=== PATIENT | female | born 2005 | race Caucasian/White ===

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

== ENCOUNTER 2025-01-15 09:45 | Outpatient (CLI) | payer OTHER, SELFPAY ==
[2025-01-15 11:29] LABS: HCG,Quantitative > 15000 mIU/ml (0-5.42)
[2025-01-16 12:12] LABS: Progesterone 11.2 ng/mL (.)
== END 2025-01-15 23:59 | disposition home or self-care (01) ==
LOC: LAB 09:46
PROVIDERS: Visit Provider Obstetrics & Gynecology
DX: Z32.01 Encounter for pregnancy test, result positive (principal)
CPT/HCPCS: 36415; 84144; 84702

== ENCOUNTER 2025-02-07 14:30 | Outpatient (CLI) | payer OTHER, SELFPAY ==
[2025-02-07 15:20] LABS: Basophils % 0.2 % (0.1-2.0); Eosinophils % 0.5 % (0.1-12.0); Hematocrit 32.2 % (37.0-47.0); Hemoglobin 10.9 g/dL (12.2-16.2); Lymphocytes # 1.6 K/mm3 (0.7-4.5); Lymphocytes % 19.2 % (10-50); Mean Corpuscular HGB Conc 33.9 g/dL (31.8-35.4); Mean Corpuscular Hemoglobin 26.9 pg (27.0-31.2); Mean Corpuscular Volume 79.5 fl (81-99); Mean Platelet Volume 11.5 fl (7.4-10.4); Monocytes # 0.5 K/mm3 (0.1-1.0); Monocytes % 5.8 % (1.7-9.3); Neutrophils # 6.3 K/mm3 (1.8-7.8); Neutrophils % 74.1 % (37.0-80.0); Platelet Count 261 K/mm3 (142-424); Red Blood Count 4.05 M/mm3 (4.20-5.40); Red Cell Distribution Width 14.3 % (11.5-17.5); White Blood Count 8.5 K/mm3 (4.5-13.0)
[2025-02-07 16:05] LABS: RPR W/RFX Titers Nonreactive (Nonreactive)
[2025-02-07 16:23] LABS: HIV Combo NEGATIVE (Negative)
[2025-02-07 16:32] LABS: Hepatitis C Ab Qual. W/ RFX NEGATIVE (Negative)
[2025-02-08 07:30] LABS: Hepatitis B Surface Antigen Negative (Negative)
[2025-02-08 08:45] LABS: Rubella Antibodies, IgG 1.34 index (Immune >0.99)
[2025-02-10 21:22] LABS: Neisseria gonorrhoeae, NAA Negative (Negative)
== END 2025-02-07 23:59 | disposition home or self-care (01) ==
LOC: LAB 15:53
PROVIDERS: Visit Provider Obstetrics & Gynecology
DX: Z34.81 Encounter for supervision of other normal pregnancy, first trimester (principal)
CPT/HCPCS: 36415; 85025; 86592; 86762; 86803; 86850; 87340; 87389; 87491; 87591

== ENCOUNTER 2025-04-28 12:40 | Outpatient (CLI) | payer OTHER, SELFPAY ==
--- OUTSIDE RECORDS SUMMARY | 2025-04-28 12:43 | XMS_ITS | Continuity of Care Document ---
Author Organization [facility] Address [address] [place] [address] Care Team Providers Care Enterprise Analyst Name Role Phone KAY CARRANZA Primary Care Provider Assessment No assessment recorded. Plan of Treatment Reminders Order Date Submit Date Provider Last Modified By Organization Details Last Modified Time Details Appointments None recorded. Lab CBC w/ auto diff 2024 025 [facility], [address], [place], [address], 5 11:23:49 CMP, serum or plasma 2024 025 [facility], [address], [place], [address], 5 11:23:50 TSH + free T4, serum 2024 025 [facility], [address], [place], [address], 5 11:23:48 HbA1c (hemoglobin A1c), blood 2024 025 [facility], [address], [place], [address], 5 11:23:52 magnesium, serum or plasma 2024 025 [facility], [address], [place], [address], 5 11:23:54 cobalamin and folate panel, serum 2024 025 [facility], [address], [address], [place], [address], 5 11:23:51 vitamin D, 25-hydroxy, total, serum 2024 025 [facility], [address], [address], [place], [address], 5 11:23:53 iron + TIBC + ferritin, serum 2024 025 [facility], [address], [address], [place], [address], 5 11:23:47 Referral obstetricia n and gynecologis t referral - Dr. Wallace in [facility] 2024 025 [email or web address] Mary Kay Wallace DO, [address], [place], [address], 08:43:16 cardiologis t referral - Dr. Parham see if they can see her this week [facility]24 [facility], [address], [place], [address], 08:43:16 Procedures None recorded. Surgeries None recorded. Imaging None recorded. Medication Orders None recorded. Patient TargetsNo targets recorded. Patient Instructions Encounter Date Encounter Id Patient Instructions Last Modified By Organization Details Last Modified Time 03/03/2025 [id number] Plan: 1. labs drawn today for evaluation. 2. Referral to Cardiology started today. 3. Referral to Ob started today for evaluation of patient. 4. Patient is going to follow-up with us as needed. Patient was counseled to return to the clinic sooner if needed. 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 Parham see if they can see her this week Referring Physician: Marianna Hernandez [facility], Encounter Date: 03/03/2025 Application Support Intern And Gynecologis t Referral for Gestation period, [address] Wallace in [facility] Referring Physician: [facility], Encounter Date: 03/03/2025 Problems Name Problem SNOMED Code Status Onset Date Resolution Date Notes Provider Name and Address Organization Details Recorded Time Migraine 87385818 Active 2024 Marianna Hernandez PA-C [employer],[address], [place], [address], [place] - [facility] - [place] & [place] 5 15:14:39 Frequent headache 013732443 Active 2024 Marianna Hernandez PA-C [facility], [address], [place] [facility] [place] & [place] 5 15:15:53 Gastroesophage al reflux disease without esophagitis 282825447 Active 2024 Marianna Hernandez PA-C [facility],[address], [place], [address], [place] [facility] [place] 5 10:58:34 Gestation period, 12 weeks 08414232 Active 2024 Marianna Hernandez PA-C [facility],[address], [place], [address], [place] [facility] [place] 5 14:54:25 Near syncope 912085468 Active 2024 Marianna Hernandez PA-C [facility],[address], [place], [address], [place] [facility] [place] & [place] 5 13:21:31 Mixed anxiety and depressive disorder 831233837 Active Yeimi martinez, [place] [facility] - [place] & [place] 2 12:57:11 Irregular periods 84753113 Active Yeimi Felix null, [place] - [place] & [place] 2 12:57:11 Mood disorder 56648770 Active Yeimi Felix null, [place] - [facility] & [place] 2 12:57:11 Attention deficit hyperactivity disorder 382636052 Active Yeimi Felix null, [place] - [place] & [place] 2 12:57:11 Attention deficit hyperactivity disorder, combined type 20316960 Active Yeimi Felix null, [place] - [facility] & [place] 2 12:57:11 Allergic rhinitis 47545352 Active Yeimi Felix null, [place] - [place] & [place] 2 12:57:11 Scoliosis deformity of spine 850413484 Active Yeimi Felix null, [place] - [place] & [place] 2 12:57:11 Dyssomnia 95650599 Active Yeimi Felix null, [place] & [place] 2 12:57:11 Depression - motion Active Yeimi Felix null, [place] [facility] & [place] 2 12:57:11 Notes:Problem Name: Depressi on Problem Code: 018923891 Problem Code Type: SNOMED Status: Active Start_Date: 06/29/2021 - Problem Notes None recorded. Procedures Surgical History Date Name Laterality Status Provider Name and Address Organization Details Recorded Time 11/13/2012 Tonsillect flo/Adenoi dectomy completed Shi FRAIRE [facility] & [place] 11/19/2024 15:05:39 Imaging Results None recorded. Procedure Notes None recorded. Medical Equipment None Reported. Allergies No known drug allergies Medications Name Sig Start Date Stop Date Status Note LastModified by Organization Details LastModified Time clonidine HCl 0.1 mg tablet 1.5 {tablets} s by oral route. 11/18 completed Not Available Not Available Not Available labetalol 200 mg tablet 11/18 completed Not Available Not Available Not Available sumatriptan 25 mg tablet 1 tablet x 1 when headache presents. wait 2 hours and repeat x 1 03/03 completed Not Available Not Available Not Available clonidine HCl 0.3 mg tablet 11/18 completed Not Available Not Available Not Available sertraline 100 mg tablet TAKE 1 TABLET ONCE DAILY. 11/18 completed Not Available Not Available Not Available oxcarbazepi ne 300 mg tablet 1 {tablet} twice a day by oral route. 11/18 completed Not Available Not Available Not Available famotidine 20 mg tablet Take 1 tablet twice a day by oral route for 90 days. active Not Available Not Available No t Available fluoxetine 10 mg capsule 11/18 completed Not Available Not Available Not Available labetalol 100 mg tablet 11/18 completed Not Available Not Available Not Available sertraline 50 mg tablet TAKE ONE TABLET BY MOUTH ONCE A DAY 11/18 completed Not Available Not Available Not Available Concerta 27 mg tablet,exte nded release TAKE 1 TABLET BY MOUTH EVERY DAY IN THE MORNING 11/18 completed Not Available Not Available Not Available nitrofurant oin monohydrate /macrocryst als 100 mg capsule 11/18 completed Not Available Not Available Not Available Zafemy 150 mcg-35 mcg/24 hr transdermal patch 11/18 completed Not Available Not Available Not Available [facility] COVID-19 Antigen Rapid Home Test kit USE DIRECTED 11/18 completed Not Available Not Available Not Available Vitals Date Recorded Body height Body mass index (BMI) [Percentile] Per age and sex Body mass index (BMI) Body weight Body temperature Oxygen saturation Oxygen saturation in Arterial blood by Pulse oximetry Heart rate Systolic blood pressure Diastolic blood pressure Provider Name and Address Organization Details Last Updated DateTime 5 162.56 cm 94 % 30.9 kg/m2 61570.6 3 g 97.9 [degF] 99 % 99 % 73 /min 120 mm[Hg] 70 mm[Hg] Shi Collado [place] [facility] & [place] 14:28:01 Social History Question Answer Notes LastModified by Organizat ion Details LastModified Time Tobacco Smoking Status Current Some Day Smoker Shi Collado michelle, [place] [facility] & [place] 11/19/2024 15:05:36 Do You Have An Advance Directive? No Information not available 11/19/2024 Are You Blind Or Do You Have Difficulty Seeing? No [email or web address] Information not available 11/19/2024 What Was The Date Of Your Most Recent Tobacco Screening? 11/18/2024 [email or web address] Information not available 11/19/2024 Are You Passively Exposed To Smoke? No [email or web address] Information not available 11/19/2024 How Much Tobacco Do You Smoke? 0.25 PPD [email or web address] Information not available 11/19/2024 How Many Years Have You Smoked Tobacco? 3 [email or web address] Information not available 11/19/2024 Sex: Female Functional Status Question Answer Note LastModified by Organizat ion Details LastModified Time Do you use any illicit or recreational drugs? No [email or web address] Information not available 11/19/2024 What is your level of alcohol consumption? None [email or web address] Information not available 11/19/2024 Do you or have you ever used smokeless tobacco? Never used smokeless tobacco [email or web address] Information not available 11/19/2024 What is your exercise level? Occasional [email or web address] Information not available 11/19/2024 Mental Status Question Answer Note LastModified by Organization D etails LastModified Time Do you feel stressed (tense, restless, nervous, or anxious, or unable to sleep at night)? [id number] [email or web address] Information not available 11/19/2024 Family History Relationship Description Onset Age of this Age Resolved Age Notes LastModified by Organization Details LastModified Time Father Heart disease [email or web address] Not available 2024 15:06:08 Medical History No medical history recorded. Gynecological History Statement/Question Response Menses Monthly Y Sexually Active? Y Obstetrics History GPAL:G 0 P 0 0 0 0 Immunizations Vaccine Type Date Status Note Provider Nam e and Address Organization Details Recorded Time IPV 6 completed Yeimi martinez, [place] [facility] [place] & [place] 07/24/2022 12:57:12 DTaP, 5 pertussis antigens 6 completed Yeimi martinez, [place] [facility] [place] 07/24/2022 12:57:12 DTaP, 5 pertussis antigens 5 completed Yeimi martinez [place] [facility] - [facility] & [place] 07/24/2022 12:57:12 HPV, unspecified formulation 6 completed Yeimi Isidro null, [place] [facility] - [facility] & [place] 07/24/2022 12:57:12 Hep B, adolescent or pediatric 6 completed Yeimi Isidro null, [place] [facility] [place] & [place] 07/24/2022 12:57:12 Hib (PRP-T) 6 completed Yeimi Isidro null[place] [facility] [place] & [place] 07/24/2022 12:57:12 Influenza, split virus, quadrivalent, PF 2 completed Yeimi Felix null[place] [facility] [place] [facility] & [place] 07/24/2022 12:57:12 MMR 6 completed Yeimi Isidro null[place] [facility] [place] & [place] 07/24/2022 12:57:12 Hib (PRP-T) 6 completed Yeimi [place]id[place] [facility] [place] & [place] 07/24/2022 12:57:12 Hep A, ped/adol, 2 dose 6 completed Yeimi Felix [place] [facility] [place] [facility] & [place] 07/24/2022 12:57:12 Hep B, adolescent or pediatric 6 completed Yeimi Felix [place] [facility] [place] & [place] 07/24/2022 12:57:12 DTaP, 5 pertussis antigens 6 completed Yeimi Felix [place] [facility] [place] & [place] 07/24/2022 12:57:12 meningococcal B, OMV 1 completed Yeimi Felix [place] [facility] [place] [facility] & [place] 07/24/2022 12:57:12 IPV 6 completed Yeimi Isidro [place] [facility] [place] 07/24/2022 12:57:12 Hep B, adolescent or pediatric 5 completed Yeimi Felix [place] [facility] [place] & 07/24/2022 12:57:12 Hib (PRP-T) 6 completed Yeimi Molinaett null[place] [facility] [place] 07/24/2022 12:57:12 Hib (PRP-T) 5 completed Yeimi Molina[place] null[place] [facility] [place] & [place] 07/24/2022 12:57:12 IPV 6 completed Yeimi Mol[place] [facility] [place] 07/24/2022 12:57:12 Hep B, adolescent or pediatric 5 completed Yeimi [place]idro [place] [facility] 07/24/2022 12:57:12 Tdap 6 completed Yeimi Mol[place] null[place] [facility] [place] [facility] & 07/24/2022 12:57:12 meningococcal B, OMV 1 completed Yeimi [place] & 07/24/2022 12:57:12 varicella 6 completed Yeimi Molina[place] null[place] [facility] [place] & [place] 07/24/2022 12:57:12 DTaP, 5 pertussis antigens 6 completed Yeimi Molinaett [place] [facility] [place] & [place] 07/24/2022 12:57:12 DTaP, 5 pertussis antigens 6 completed Yeimi [place]id[place] [facility] & [place] 07/24/2022 12:57:12 pneumococcal conjugate PCV 7 6 completed Yeimi [place]id[place] [facility] & [place] 07/24/2022 12:57:12 DTaP, 5 pertussis antigens 9 completed Yeimi Molina[place] [facility] & [place] 07/24/2022 12:57:12 Hep A, unspecified formulation 7 completed Yeimi Isidro [place] [facility] & [place] 07/24/2022 12:57:12 IPV 5 completed Yeimi Felix null[place] [facility] [place] [facility] & [place] 07/24/2022 12:57:12 pneumococcal conjugate PCV 7 5 completed Yeimi Felix [place] [facility] & [place] 07/24/2022 12:57:12 Hep B, adolescent or pediatric 6 completed Yeimi Felix [place] [facility] & [place] 07/24/2022 12:57:12 meningococcal MCV4P 1 completed Yeimi [place] [facility] & [place] 07/24/2022 12:57:12 pneumococcal conjugate PCV 7 6 completed Yeimi Felix [place] [facility] & [place] 07/24/2022 12:57:12 varicella 8 completed Ye[place] [facility] & [place] 07/24/2022 12:57:12 MMR 9 completed Yeimi [place] [facility] & [place] 07/24/2022 12:57:12 IPV 9 completed Yeimi Felix [place] [facility] & [place] 07/24/2022 12:57:12 HPV, unspecified formulation 7 completed Ye[place] [facility] & [place] 07/24/2022 12:57:12 Hib (PRP-T) 9 completed Yeimi Felix [place] [facility] & [place] 07/24/2022 12:57:12 meningococcal MCV4, unspecified formulation 6 completed Yeimi [place] [facility] [facility] & [place] 07/24/2022 12:57:12 Past Encounters Encounter ID Performer Location Encounter Start Date Encounter Closed Date Diagnosis/Indication Diagnosis SNOMED-CT Code Diagnosis ICD10 Code Diagnosis Note [id number] Calvin Brown MD [facility] [address] [facility] [place] [address] 03/03/2025 13:59:36 03/03/2025 15:16:33 Gestation period, 12 weeks 69854487 Z3A.12 Near syncope 061192174 R 55 Health Concerns Section Related Observation LastModified by Organization Detai ls LastModified Time None Recorded Concern Status LastModified by Organization Details LastModified Time None Recorded Payers Encounter Date Sequence Insurance Name Policy Number Policy Grimm Covered Member ID Grimm Member ID Guarantor Name 03/03/2025 1 [employer] [facility] (MEDICAID HMO) Meredith Hewitt [id number] Meredith Villegas Notes Date Note Type Note Provider Name and Address Organization Details Recorded Time 03/03/2025 text/html Meredith is a 19 y o Female who presents to the clinic today for evaluation. Patient is currently 12 weeks . Over the 6 months patient has been having episodes of near syncopal episodes. Patient states that nothing has seemed to make this any better or worse it hurts at random times. She feels like she is going to pass out and that is all the symptoms she has. Patient denies any palpitations or chest pain. Patient has been to see her OB already and has an upcoming appointment here in a few weeks. Patient has no other issues or new complaints. Marianna Hernandez PA-C [address] [facility],[address], [place], [address], [facility] - [place] & [place] 03/04/2025 11:08:44 OBGyn Episode No OBEpisode recorded.
--- OUTSIDE RECORDS SUMMARY | 2025-04-28 12:43 | XMS_ITS | Data Portability ---
Author Organization [facility], [facility] [place] Address [address] [place] [address] Care Team Providers Care Speech Professor Name Role Phone CHASTITY CARRANZANN Primary Care Provider Assessment No assessment recorded. Plan of Treatment Reminders Order Date Submit Date Provider Last Modified By Organization Details Last Modified Time Details Appointments None recorded. Lab CBC w/ auto diff 2024 025 [facility], [address], [place], [address], 5 11:23:49 CMP, serum or plasma 2024 025 [facility], [address], [place], [address], 5 11:23:50 TSH + free T4, serum 2024 025 [facility], [address], [place], [address], 5 11:23:48 HbA1c (hemoglobin A1c), blood 2024 025 [facility], [address], [place], [address], 5 11:23:52 magnesium, serum or plasma 2024 025 [facility], [address], [place], [address], 5 11:23:54 cobalamin and folate panel, serum 2024 025 [facility], [address], [address], [place], [address], 5 11:23:51 vitamin D, 25-hydroxy, total, serum 2024 025 [facility], [address], [address], [place], [address], 5 11:23:53 iron + TIBC + ferritin, serum 2024 025 [facility], [address], [address], [place], [address], 5 11:23:47 CMP, serum or plasma 2024 025 [facility], [address], [address], [place], [address], 5 07:11:49 CBC w/ auto diff 2024 025 [facility], [address], [address], [place], [address], 5 07:11:48 iron + total iron-bindin g capacity (TIBC), serum 2024 025 [facility], [address], [address], [place], [address], 5 07:11:50 vitamin B12 + folate, serum or blood 2024 025 [facility], [address], [address], [place], [address], 5 07:11:46 TSH + free T4, serum 2024 025 [facility], [address], [address], [place], [address], 5 07:11:46 magnesium, serum or plasma 2024 025 [facility], [address], [address], [place], [address], 5 07:11:51 hCG, qualitative , serum 2024 025 [email or web address] [facility], [address], [address], [place], [address], 5 07:56:39 Referral obstetricia n and gynecologis t referral - Dr. Wallace in [facility] 2024 025 [place] [id number] Mary Kay Wallace DO, [address], [address], [place], [address], 08:43:16 cardiologis t referral - Dr. Parham see if they can see her this week 2024 025 [place] [id number] Mindy Huff MD, [address], [place], [address], 08:43:16 Procedures None recorded. Surgeries None recorded. Imaging MRI, head, w/o contrast [email or web address], [address] [facility] , [place], [address], 07:12:07 Medication Orders sumatriptan 25 mg tablet 2024 025 [facility], [address] [place], [address], 5 14:56:54 famotidine 20 mg tablet 2024 025 [facility], [address] [place], [address], 11:00:08 Patient TargetsNo targets recorded. Patient InstructionsNo instructions recorded. 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 Parham see if they can see her this week Referring Physician: Marianna Serna, Family Medicine, Encounter Date: 03/03/2025 Prior Authorization Technician And Gynecologis t Referral for Gestation period, [address] Wallace in [facility] Referring Physician: Marianna Serna, [facility] Medicine, Encounter Date: 03/03/2025 Results Created Date Observation Date Name Description Value Unit Range Abnormal Flag Note LastModifiedBy Organization Detail LastModifiedTime 11/19/1911/19/2024 VITAM IN B12+F OLATE homocyst(E)i ne Not Available [facility] ([facility]) [address] [place], [address], 11/20/2024 07:11:46 11/19/19 25 11/19/2024 VITAM IN B12+F OLATE methylmaloni c acid, serum Not Available [facility] ([facility]) [address] [place], [address], 11/20/2024 07:11:46 11/19/19 25 11/20/2024 VITAM IN B12+F OLATE vitamin B12 331 pg/mL 232-12 45 normal Not Available [facility] ([facility]) [address] [place], [address], 11/20/2024 07:11:46 11/19/19 25 11/20/2024 VITAM IN B12+F OLATE folate (folic acid), serum 3.1 NG/mL >3.0 normal A serum folat e eduardo ntrat ion of less than 3.1 ng/mL is consi dered to repre sent clini clark defic iency . Not Available [facility] ([facility]) [address] [place], [address], 11/20/2024 07:11:46 11/19/1911/20/2024 TSH+F REE T4 TSH 1.260 uIU/m L 0.450- 4.500 normal Not Available [facility] ([facility]) [address] [place], [address], 11/20/2024 07:11:46 11/19/19 25 11/20/2024 TSH+F REE T4 T4,free(dire ct) 1.17 NG/dL 0.93-1 .60 normal Not Available [facility] ([facility]) [address] [place], [address], 11/20/2024 07:11:46 11/19/19 25 11/20/2024 CBC WITH DIFFE RENTI AL/PL ATELE T WBC 8.0 x10e3 /uL 3.4-10 .8 normal Not Available [facility] ([facility]) [address] [place], [address], 11/20/2024 07:11:48 11/19/1911/20/2024 CBC WITH DIFFE RENTI AL/PL ATELE T RBC 4.35 x10e6 /uL 3.77-5 .28 normal Not Available [facility] ([facility]) [address] [place], [address], 11/20/2024 07:11:48 11/19/1911/20/2024 CBC WITH DIFFE RENTI AL/PL ATELE T hemoglobin 11.2 g/dL 11.1-1 5.9 normal Not Available [facility] ([facility]) [address] [place], [address], 11/20/2024 07:11:48 11/19/19 25 11/20/2024 CBC WITH DIFFE RENTI AL/PL ATELE T hematocrit 33.9 % 34.0-4 6.6 below low normal Not Available [facility] ([facility]) [address] [facility], [place], [address], 11/20/2024 07:11:48 11/19/19 25 11/20/2024 CBC WITH DIFFE RENTI AL/PL ATELE T MCV 78 fL 79-97 below low normal Not Available [facility] ([facility]) [address] [facility], [place], [address], 11/20/2024 07:11:48 11/19/19 25 11/20/2024 CBC WITH DIFFE RENTI AL/PL ATELE T MCH 25.7 pg 26.6-3 3.0 below low normal Not Available [facility] ([facility]) [address] [facility], [place], [address], 11/20/2024 07:11:48 11/19/19 25 11/20/2024 CBC WITH DIFFE RENTI AL/PL ATELE T MCHC 33.0 g/dL 31.5-3 5.7 normal Not Available [facility] ([facility]) [address] [place], [address], 11/20/2024 07:11:48 11/19/19 25 11/20/2024 CBC WITH DIFFE RENTI AL/PL ATELE T RDW 13.8 % 11.7-1 5.4 Not Available [facility] ([facility]) [address] [place], [address], 11/20/2024 07:11:48 11/19/19 25 11/20/2024 CBC WITH DIFFE RENTI AL/PL ATELE T platelets 310 x10e3 /uL 150-45 0 normal Not Available [facility] ([facility]) [address] [place], [address], 11/20/2024 07:11:48 11/19/19 25 11/20/2024 CBC WITH DIFFE RENTI AL/PL ATELE T neutrophils 67 % not estab. normal Not Available [facility] ([facility]) [address] [facility], [place], [address], 11/20/2024 07:11:48 11/19/19 25 11/20/2024 CBC WITH DIFFE RENTI AL/PL ATELE T lymphs 24 % not estab. normal Not Available [facility] ([facility]) [address] [facility], [place], [address], 11/20/2024 07:11:48 11/19/19 25 11/20/2024 CBC WITH DIFFE RENTI AL/PL ATELE T monocytes 6 % not estab. normal Not Available [facility] ([facility]) [address] [facility], [place], [address], 11/20/2024 07:11:48 11/19/19 25 11/20/2024 CBC WITH DIFFE RENTI AL/PL ATELE T eos 2 % not estab. normal Not Available [facility] ([facility]) [address] [facility], [place], [address], 11/20/2024 07:11:48 11/19/19 25 11/20/2024 CBC WITH DIFFE RENTI AL/PL ATELE T basos 1 % not estab. normal Not Available [facility] ([facility]) [address] [facility], [place], [address], 11/20/2024 07:11:48 11/19/1911/20/2024 CBC WITH DIFFE RENTI AL/PL ATELE T immature cells TELECOMMUNICATIONS SUPPORT Not Available [facility] ([facility]) [address] [place], [address], 11/20/2024 07:11:48 11/19/1911/20/2024 CBC WITH DIFFE RENTI AL/PL ATELE T neutrophils (absolute) 5.4 x10e3 /uL 1.4-7. 0 normal Not Available [facility] ([facility]) [address] [place], [address], 11/20/2024 07:11:48 11/19/19 25 11/20/2024 CBC WITH DIFFE RENTI AL/PL ATELE T lymphs (absolute) 1.9 x10e3 /uL 0.7-3. 1 normal Not Available [facility] ([facility]) [address] [facility], [place], [address], 11/20/2024 07:11:48 11/19/1911/20/2024 CBC WITH DIFFE RENTI AL/PL ATELE T monocytes(ab solute) 0.5 x10e3 /uL 0.1-0. 9 normal Not Available [facility] ([facility]) [address] [facility], [place], [address], 11/20/2024 07:11:48 11/19/19 25 11/20/2024 CBC WITH DIFFE RENTI AL/PL ATELE T eos (absolute) 0.1 x10e3 /uL 0.0-0. 4 normal Not Available [facility] ([facility]) [address] [facility], [place], [address], 11/20/2024 07:11:48 11/19/1911/20/2024 CBC WITH DIFFE RENTI AL/PL ATELE T baso (absolute) 0.0 x10e3 /uL 0.0-0. 2 normal Not Available [facility] ([facility]) [address] [facility], [place], [address], 11/20/2024 07:11:48 11/19/1911/20/2024 CBC WITH DIFFE RENTI AL/PL ATELE T immature granulocytes 0 % not estab. Not Available [facility] ([facility]) [address] [facility], [place], [address], 11/20/2024 07:11:48 11/19/19 25 11/20/2024 CBC WITH DIFFE RENTI AL/PL ATELE T immature grans (abs) 0.0 x10e3 /uL 0.0-0. 1 Not Available [facility] ([facility]) [address], [place], [address], 11/20/2024 07:11:48 11/19/19 25 11/20/2024 CBC WITH DIFFE RENTI AL/PL ATELE T NRBC TELECOMMUNICATIONS SUPPORT Not Available [facility] ([facility]) [address], [place], [address], 11/20/2024 07:11:48 11/19/19 25 11/20/2024 CBC WITH DIFFE RENTI AL/PL ATELE T hematology comments: TELECOMMUNICATIONS SUPPORT Not Available [facility] ([facility]) [address], [place], [address], 11/20/2024 07:11:48 11/19/19 25 11/20/2024 COMP. METAB OLIC PANEL (14) glucose 88 mg/dL 70-99 normal Not Available [facility] ([facility]) [address] [place], [address], 11/20/2024 07:11:49 11/19/19 25 11/20/2024 COMP. METAB OLIC PANEL (14) BUN 8 mg/dL 6-20 normal Not Available [facility] ([facility]) [address] [place], [address], 11/20/2024 07:11:49 11/19/19 25 11/20/2024 COMP. METAB OLIC PANEL (14) creatinine 0.76 mg/dL 0.57-1 .00 normal Not Available [facility] ([facility]) [address] [place], [address], 11/20/2024 07:11:49 11/19/19 25 11/20/2024 COMP. METAB OLIC PANEL (14) eGFR 116 mL/mi n/1.7 3 >59 normal Not Available [facility] ([facility]) [address] [place], [address], 11/20/2024 07:11:49 11/19/19 25 11/20/2024 COMP. METAB OLIC PANEL (14) BUN/creatini ne ratio 11 9-23 normal Not Available [facility] ([facility]) [address] [facility] [place], [address], 11/20/2024 07:11:49 11/19/19 25 11/20/2024 COMP. METAB OLIC PANEL (14) sodium 138 mmol/ L 134-14 4 normal Not Available [facility] ([facility]) [address] [facility] [place], [address], 11/20/2024 07:11:49 11/19/19 25 11/20/2024 COMP. METAB OLIC PANEL (14) potassium 4.4 mmol/ L 3.5-5. 2 normal Not Available [facility] ([facility]) [address] [facility] [place], [address], 11/20/2024 07:11:49 11/19/19 25 11/20/2024 COMP. METAB OLIC PANEL (14) chloride 103 mmol/ L 96-106 normal Not Available [facility] ([facility]) [address] [facility] [place], [address], 11/20/2024 07:11:49 11/19/19 25 11/20/2024 COMP. METAB OLIC PANEL (14) carbon dioxide, total 22 mmol/ L 20-29 normal Not Available [facility] ([facility]) [address] [facility] [place], [address], 11/20/2024 07:11:49 11/19/19 25 11/20/2024 COMP. METAB OLIC PANEL (14) calcium 9.9 mg/dL 8.7-10 .2 normal Not Available [facility] ([facility]) [address] [facility] [place], [address], 11/20/2024 07:11:49 11/19/19 25 11/20/2024 COMP. METAB OLIC PANEL (14) protein, total 7.1 g/dL 6.0-8. 5 normal Not Available [facility] ([facility]) [address] [facility], [address], 11/20/2024 07:11:49 11/19/19 25 11/20/2024 COMP. METAB OLIC PANEL (14) albumin 4.5 g/dL 4.0-5. 0 normal Not Available [facility] ([facility]) [address] [place], [address], 11/20/2024 07:11:49 11/19/19 25 11/20/2024 COMP. METAB OLIC PANEL (14) globulin, total 2.6 g/dL 1.5-4. 5 Not Available [facility] ([facility]) [address] [facility] [place], [address], 11/20/2024 07:11:49 11/19/19 25 11/20/2024 COMP. METAB OLIC PANEL (14) bilirubin, total 0.3 mg/dL 0.0-1. 2 normal Not Available [facility] ([facility]) [address] [facility] [place], [address], 11/20/2024 07:11:49 11/19/19 25 11/20/2024 COMP. METAB OLIC PANEL (14) alkaline phosphatase 98 IU/L 42-106 normal Not Available [facility] ([facility]) [address] [facility] [place], [address], 11/20/2024 07:11:49 11/19/19 25 11/20/2024 COMP. METAB OLIC PANEL (14) AST (SGOT) 14 IU/L 0-40 normal Not Available [facility] ([facility]) [address] [facility] [place], [address], 11/20/2024 07:11:49 11/19/19 25 11/20/2024 COMP. METAB OLIC PANEL (14) ALT (SGPT) 10 IU/L 0-32 normal Not Available [facility] ([facility]) [address] [place], [address], 11/20/2024 07:11:49 11/19/19 25 11/20/2024 IRON AND TIBC iron bind.cap.(TI BC) 338 ug/dL 250-45 0 normal Not Available [facility] ([facility]) [address] [place], [address], 11/20/2024 07:11:50 11/19/19 25 11/20/2024 IRON AND TIBC UIBC 295 ug/dL 131-42 5 normal Not Available [facility] ([facility]) [address] [place], [address], 11/20/2024 07:11:50 11/19/19 25 11/20/2024 IRON AND TIBC iron 43 ug/dL 27-159 normal Not Available [facility] ([facility]) [address] [place], [address], 11/20/2024 07:11:50 11/19/1911/20/2024 IRON AND TIBC iron saturation 13 % 15-55 below low normal Not Available [facility] ([facility]) [address] [place], [address], 11/20/2024 07:11:50 11/19/1911/20/2024 MAGNE SIUM magnesium 2.1 mg/dL 1.6-2. 3 normal Not Available [facility] ([facility]) [address] [place], [address], 11/20/2024 07:11:51 11/19/1911/20/2024 HCG,B ETA SUBUN IT,QU AL HCG,beta subunit,qual Negati ve mIU/m L negati ve <6 Not Available [facility] ([facility]) [address] [place], [address], 11/20/2024 07:11:52 11/19/19 25 11/20/2024 VITAM IN B12+F OLATE vitamin B12 331 pg/mL 232-12 45 normal Not Available [facility] ([facility]) [address] [place], [address], 11/23/2024 07:10:30 11/19/19 25 11/20/2024 VITAM IN B12+F OLATE folate (folic acid), serum 3.1 NG/mL >3.0 normal A serum folat e eduardo ntrat ion of less than 3.1 ng/mL is consi dered to repre sent clini clark defic iency . Not Available [facility] ([facility]) [address] [place], [address], 11/23/2024 07:10:30 11/19/19 25 11/21/2024 VITAM IN B12+F OLATE homocyst(E)i ne 11.0 umol/ L 0.0-14 .5 Not Available [facility] ([facility]) [address] [place], [address], 11/23/2024 07:10:30 11/19/19 25 11/23/2024 VITAM IN B12+F OLATE methylmaloni c acid, serum 130 nmol/ L 0-378 Not Available [facility] ([facility]) [address] [place], [address], 11/23/2024 07:10:30 03/03/20 25 03/04/2025 FE+TI BC+FE R iron bind.cap.(TI BC) 302 ug/dL 250-45 0 normal Not Available [facility] ([facility]) [address] [place], [address], 03/04/2025 11:23:47 03/03/20 25 03/04/2025 FE+TI BC+FE R UIBC 230 ug/dL 131-42 5 normal Not Available [facility] ([facility]) [address] [place], [address], 03/04/2025 11:23:47 03/03/20 25 03/04/2025 FE+TI BC+FE R iron 72 ug/dL 27-159 normal Not Available [facility] ([facility]) [address] [place], [address], 03/04/2025 11:23:47 03/03/20 25 03/04/2025 FE+TI BC+FE R iron saturation 24 % 15-55 normal Not Available [facility] ([facility]) [address] [place], [address], 03/04/2025 11:23:47 03/03/20 25 03/04/2025 FE+TI BC+FE R ferritin 13 NG/mL 15-77 below low normal Not Available [facility] ([facility]) [address] [place], [address], 03/04/2025 11:23:47 03/03/20 25 03/04/2025 TSH+F REE T4 TSH 0.575 uIU/m L 0.450- 4.500 normal Not Available [facility] ([facility]) [address] [place], [address], 03/04/2025 11:23:48 03/03/20 25 03/04/2025 TSH+F REE T4 T4,free(dire ct) 1.01 NG/dL 0.93-1 .60 normal Not Available [facility] ([facility]) [address] [place], [address], 03/04/2025 11:23:48 03/03/20 25 03/04/2025 CBC WITH DIFFE RENTI AL/PL ATELE T WBC 7.1 x10e3 /uL 3.4-10 .8 normal Not Available [facility] ([facility]) [address] [place], [address], 03/04/2025 11:23:49 03/03/20 25 03/04/2025 CBC WITH DIFFE RENTI AL/PL ATELE T RBC 3.91 x10e6 /uL 3.77-5 .28 normal Not Available [facility] ([facility]) [address] [place], [address], 03/04/2025 11:23:49 03/03/20 25 03/04/2025 CBC WITH DIFFE RENTI AL/PL ATELE T hemoglobin 10.7 g/dL 11.1-1 5.9 below low normal Not Available [facility] ([facility]) [address] [place], [address], 03/04/2025 11:23:49 03/03/20 25 03/04/2025 CBC WITH DIFFE RENTI AL/PL ATELE T hematocrit 33.1 % 34.0-4 6.6 below low normal Not Available [facility] ([facility]) [address] [place], [address], 03/04/2025 11:23:49 03/03/20 25 03/04/2025 CBC WITH DIFFE RENTI AL/PL ATELE T MCV 85 fL 79-97 normal Not Available [facility] ([facility]) [address] [place], [address], 03/04/2025 11:23:49 03/03/20 25 03/04/2025 CBC WITH DIFFE RENTI AL/PL ATELE T MCH 27.4 pg 26.6-3 3.0 normal Not Available [facility] ([facility]) [address] [place], [address], 03/04/2025 11:23:49 03/03/20 25 03/04/2025 CBC WITH DIFFE RENTI AL/PL ATELE T MCHC 32.3 g/dL 31.5-3 5.7 normal Not Available [facility] ([facility]) [address] [place], [address], 03/04/2025 11:23:49 03/03/20 25 03/04/2025 CBC WITH DIFFE RENTI AL/PL ATELE T RDW 14.8 % 11.7-1 5.4 Not Available [facility] ([facility]) [address] [facility], [place], [address], 03/04/2025 11:23:49 03/03/20 25 03/04/2025 CBC WITH DIFFE RENTI AL/PL ATELE T platelets 252 x10e3 /uL 150-45 0 normal Not Available [facility] ([facility]) [address] [facility], [place], [address], 03/04/2025 11:23:49 03/03/20 25 03/04/2025 CBC WITH DIFFE RENTI AL/PL ATELE T neutrophils 68 % not estab. normal Not Available [facility] ([facility]) [address] [facility], [place], [address], 03/04/2025 11:23:49 03/03/20 25 03/04/2025 CBC WITH DIFFE RENTI AL/PL ATELE T lymphs 25 % not estab. normal Not Available [facility] ([facility]) [address] [facility], [place], [address], 03/04/2025 11:23:49 03/03/20 25 03/04/2025 CBC WITH DIFFE RENTI AL/PL ATELE T monocytes 6 % not estab. normal Not Available [facility] ([facility]) [address] [facility], [place], [address], 03/04/2025 11:23:49 03/03/20 25 03/04/2025 CBC WITH DIFFE RENTI AL/PL ATELE T eos 1 % not estab. normal Not Available [facility] ([facility]) [address] [place], [address], 03/04/2025 11:23:49 03/03/20 25 03/04/2025 CBC WITH DIFFE RENTI AL/PL ATELE T basos 0 % not estab. normal Not Available [facility] ([facility]) [address] [place], [address], 03/04/2025 11:23:49 03/03/20 25 03/04/2025 CBC WITH DIFFE RENTI AL/PL ATELE T immature cells TELECOMMUNICATIONS SUPPORT Not Available [facility] ([facility]) [address] [place], [address], 03/04/2025 11:23:49 03/03/20 25 03/04/2025 CBC WITH DIFFE RENTI AL/PL ATELE T neutrophils (absolute) 4.8 x10e3 /uL 1.4-7. 0 normal Not Available [facility] ([facility]) [address] [place], [address], 03/04/2025 11:23:49 03/03/20 25 03/04/2025 CBC WITH DIFFE RENTI AL/PL ATELE T lymphs (absolute) 1.8 x10e3 /uL 0.7-3. 1 normal Not Available [facility] ([facility]) [address] [place], [address], 03/04/2025 11:23:49 03/03/20 25 03/04/2025 CBC WITH DIFFE RENTI AL/PL ATELE T monocytes(ab solute) 0.5 x10e3 /uL 0.1-0. 9 normal Not Available [facility] ([facility]) [address] [place], [address], 03/04/2025 11:23:49 03/03/20 25 03/04/2025 CBC WITH DIFFE RENTI AL/PL ATELE T eos (absolute) 0.1 x10e3 /uL 0.0-0. 4 normal Not Available [facility] ([facility]) [address] [place], [address], 03/04/2025 11:23:49 03/03/20 25 03/04/2025 CBC WITH DIFFE RENTI AL/PL ATELE T baso (absolute) 0.0 x10e3 /uL 0.0-0. 2 normal Not Available [facility] ([facility]) [address] [place], [address], 03/04/2025 11:23:49 03/03/20 25 03/04/2025 CBC WITH DIFFE RENTI AL/PL ATELE T immature granulocytes 0 % not estab. Not Available [facility] ([facility]) [address] [place], [address], 03/04/2025 11:23:49 03/03/20 25 03/04/2025 CBC WITH DIFFE RENTI AL/PL ATELE T immature grans (abs) 0.0 x10e3 /uL 0.0-0. 1 Not Available [facility] ([facility]) [address] [facility], [place], [address], 03/04/2025 11:23:49 03/03/20 25 03/04/2025 CBC WITH DIFFE RENTI AL/PL ATELE T NRBC TELECOMMUNICATIONS SUPPORT Not Available [facility] ([facility]) [address] [place], [address], 03/04/2025 11:23:49 03/03/20 25 03/04/2025 CBC WITH DIFFE RENTI AL/PL ATELE T hematology comments: TELECOMMUNICATIONS SUPPORT Not Available [facility] ([facility]) [address] [place], [address], 03/04/2025 11:23:49 03/03/20 25 03/04/2025 COMP. METAB OLIC PANEL (14) glucose 84 mg/dL 70-99 normal Not Available [facility] ([facility]) [address] [place], [address], 03/04/2025 11:23:50 03/03/20 25 03/04/2025 COMP. METAB OLIC PANEL (14) BUN 6 mg/dL 6-20 normal Not Available [facility] ([facility]) [address] [place], [address], 03/04/2025 11:23:50 03/03/20 25 03/04/2025 COMP. METAB OLIC PANEL (14) creatinine 0.49 mg/dL 0.57-1 .00 below low normal Not Available [facility] ([facility]) [address] [place], [address], 03/04/2025 11:23:50 03/03/20 25 03/04/2025 COMP. METAB OLIC PANEL (14) eGFR 139 mL/mi n/1.7 3 >59 normal Not Available [facility] ([facility]) [address] [place], [address], 03/04/2025 11:23:50 03/03/20 25 03/04/2025 COMP. METAB OLIC PANEL (14) BUN/creatini ne ratio 12 9-23 normal Not Available [facility] ([facility]) [address] [place], [address], 03/04/2025 11:23:50 03/03/20 25 03/04/2025 COMP. METAB OLIC PANEL (14) sodium 138 mmol/ L 134-14 4 normal Not Available [facility] ([facility]) [address] [place], [address], 03/04/2025 11:23:50 03/03/20 25 03/04/2025 COMP. METAB OLIC PANEL (14) potassium 4.1 mmol/ L 3.5-5. 2 normal Not Available [facility] ([facility]) [address] [place], [address], 03/04/2025 11:23:50 03/03/20 25 03/04/2025 COMP. METAB OLIC PANEL (14) chloride 106 mmol/ L 96-106 normal Not Available [facility] ([facility]) [address] [place], [address], 03/04/2025 11:23:50 03/03/20 25 03/04/2025 COMP. METAB OLIC PANEL (14) carbon dioxide, total 18 mmol/ L 20-29 below low normal Not Available [facility] ([facility]) [address] [place], [address], 03/04/2025 11:23:50 03/03/20 25 03/04/2025 COMP. METAB OLIC PANEL (14) calcium 9.7 mg/dL 8.7-10 .2 normal Not Available [facility] ([facility]) [address] [place], [address], 03/04/2025 11:23:50 03/03/20 25 03/04/2025 COMP. METAB OLIC PANEL (14) protein, total 6.3 g/dL 6.0-8. 5 normal Not Available [facility] ([facility]) [address] [facility] [place], [address], 03/04/2025 11:23:50 03/03/20 25 03/04/2025 COMP. METAB OLIC PANEL (14) albumin 3.9 g/dL 4.0-5. 0 below low normal Not Available [facility] ([facility]) [address] [facility] [place], [address], 03/04/2025 11:23:50 03/03/20 25 03/04/2025 COMP. METAB OLIC PANEL (14) globulin, total 2.4 g/dL 1.5-4. 5 Not Available [facility] ([facility]) [address] [facility] [place], [address], 03/04/2025 11:23:50 03/03/20 25 03/04/2025 COMP. METAB OLIC PANEL (14) bilirubin, total 0.2 mg/dL 0.0-1. 2 normal Not Available [facility] ([facility]) [address] [facility], [place], [address], 03/04/2025 11:23:50 03/03/20 25 03/04/2025 COMP. METAB OLIC PANEL (14) alkaline phosphatase 62 IU/L 42-106 normal Not Available [facility] ([facility]) [address] [facility] [place], [address], 03/04/2025 11:23:50 03/03/20 25 03/04/2025 COMP. METAB OLIC PANEL (14) AST (SGOT) 15 IU/L 0-40 normal Not Available [facility] ([facility]) [address] [facility] [place], [address], 03/04/2025 11:23:50 03/03/20 25 03/04/2025 COMP. METAB OLIC PANEL (14) ALT (SGPT) 15 IU/L 0-32 normal Not Available [facility] ([facility]) [address] [facility], [place], [address], 03/04/2025 11:23:50 03/03/20 25 03/04/2025 VITAM IN B12 AND FOLAT E vitamin B12 241 pg/mL 232-12 45 normal Not Available [facility] ([facility]) [address] [place], [address], 03/04/2025 11:23:51 03/03/20 25 03/04/2025 VITAM IN B12 AND FOLAT E folate (folic acid), serum 9.8 NG/mL >3.0 normal A serum folat e eduardo ntrat ion of less than 3.1 ng/mL is consi dered to repre sent clini clark defic iency . Not Available [facility] ([facility]) [address] [facility], [place], [address], 03/04/2025 11:23:51 03/03/20 25 03/04/2025 HEMOG LOBIN A1C hemoglobin A1C 5.5 % 4.8-5. 6 normal Predi abete s: 5.7 - 6.4 Diabe misael: >6.4 Glyce dee contr ol for adult s with diabe misael: <7.0 Not Available [facility] ([facility]) [address] [facility], [place], [address], 03/04/2025 11:23:52 03/03/20 25 03/04/2025 VITAM IN D, 25-HY DROXY vitamin D, 25-hydroxy 24.5 NG/mL 30.0-1 00.0 below low normal Vitam in D defic iency has been defin ed by the Insti tute of Medic ine and an Endoc rine Socie ty pract ice guide line as a level of serum 25-OH vitam in D less than 20 ng/mL (1,2) . The Endoc rine Socie ty went on to furth er defin e vitam in D insuf ficie ncy as a level betwe en 21 and 29 ng/mL (2). 1. IOM (Inst itute of Medic ine). 2009. Dieta ry refer ence intak es for calci um and D. Denis field [place]: [facility] . 2. Anne hickman MF, Ranulfo wallace NC, Talia off-F errar i RAJPUT, et al. Evalu ation , treat ment, and preve ntion of vitam in D defic iency : an Endoc rine Socie ty clini clark pract ice guide line. JCEM. 2010; 96(7) :1911 -30. Not Available [facility] ([facility]) [address] [facility], [place], [address], 03/04/2025 11:23:53 03/03/20 25 03/04/2025 MAGNE SIUM magnesium 2.0 mg/dL 1.6-2. 3 normal Not Available [facility] ([facility]) [address] [facility], [place], [address], 03/04/2025 11:23:54 11/22/19 25 11/22/2024 [facility] [address] [place] [address] Phone: Fax: Name: MEREDITH DAMON Exam Date: : 005 Age 19 years Gender : F Access ion: [id number] Physic ebenezer: IRAJ SERNA Facili ty: [facility] al HSV: Outpat ient Exam: MRI BRAIN WO Histor y:i??i ??Migr torrey headac he. Compar sukhi:i ??i??N one Interp retati on:i?? i??MRI examin ation of the brain is obtain ed using standa rd imagin g.i??i ??Axia l T2 to imagin g demons trates no acute signal abnorm ality. Hodge l FLAIR sequen ce demons trates no signal abnorm ality as well. Diffus ion-we ighted imagin g demons trates no eviden ce of water restri ction or other diffus ion abnorm alitie s.i??i ??Sagi ttal and axial T1-marya ghted sequen lori demons trates normal cortic al signal .i??i? ?Crani ocervi clark juncti on is normal . Impres cristy:i ??i?? Normal MRI of the brain. No acute signal abnorm ality is seen. No mass lesion or infarc t is observ ed. Electr onical ly Signed by: Reyes Tim MD Dictat ed By: Reyes Tim Transc ribed By: Transc ribed On: 025 2:46 PM Electr onical ly signed by: Reyes Tim 025 Thank you [facility] ing [facility] Legall y authen ticate d by PETTY REYES Newton 11-22 14:46: 49 CC'ed Logic: Orderi ng Provid er: DAPHNE LOZA CC Provid er: DAPHNE LOZA Attend ing Provid er: DAPHNE LOZA Referr ing Provid er: DAPHNE LOZA Admitt ing Provid er: DAPHNE LOZA [email or web address] [facility] (Imaging) [address], [place], [address], 11/27/2024 10:37:27 Result Notes Documentation Provider Name and Address Organization Details Recorded Time Mri, Brain, W/o Contrast : [address] [address] Name: MEREDITH YEE Exam Date: 11/22/2024 : 2005 Age 19 years Gender: F Physician: MARIANNA SERNA Facility: [facility] HSV: Outpatient Exam: MRI BRAIN WO History:i??i??Migraine headache. Comparison:i??i??None Interpretation:i??i??MRI examination of the brain is obtained using standard imaging.i??i??Axial T2 to imaging demonstrates no acute signal abnormality. Coronal FLAIR sequence demonstrates no signal abnormality as well. Diffusion-weighted imaging demonstrates no evidence of water restriction or other diffusion abnormalities.i??i??Sagit julio and axial T1-weighted sequences demonstrates normal cortical signal.i??i??Craniocervic al junction is normal. Impression:i??i?? Normal MRI of the brain. No acute signal abnormality is seen. No mass lesion or infarct is observed. Electronically Signed by: Reyes Tim MD Dictated By: Reyes Tim Transcribed By: Transcribed On: 11/22/2024 2:46 PM Electronically signed by: Reyes Tim 11/22/2024 Thank you for referring MEREDITH YEE to [facility]. Legally authenticated by PETTY REYES Newton 2024-11-22 14:46:49 CC'ed Logic: Ordering Provider: DAPHNE THURSTON CC Provider: DAPHNE THURSTON Attending Provider: DAPHNE THURSTON Referring Provider: DAPHNE THURSTON Admitting Provider: DAPHNE Collado [facility] [place] - [facility] - [place] & [place] 11/27/2024 10:37:27 Problems Name Problem SNOMED Code Status Onset Date Resolution Date Notes Provider Name and Address Organization Details Recorded Time Migraine 71840629 Active 2024 Marianna Serna PA-C [address], [place], [address], [place] [facility] - [place] & [place] 5 15:14:39 Frequent headache 349425940 Active 2024 Marianna Serna PA-C [address], [place], [address], [place] [facility] [place] & [place] 5 15:15:53 Gastroesophage al reflux disease without esophagitis 890758346 Active 2024 Marianna Serna PA-C [address], [place], [address], [place] [facility] [place] 5 10:58:34 Gestation period, 12 weeks 78180334 Active 2024 Marianna Serna PA-C [address], [place], [address], [place] [facility] [place] & [place] 5 14:54:25 Near syncope 756521710 Active 2024 Marianna Serna PA-C [address], [place], [address], [place] [facility] [place] & [place] 5 13:21:31 Mixed anxiety and depressive disorder 511159864 Active Yeimi Isidro null, [place] [facility] [place] & [place] 2 12:57:11 Irregular periods 71049362 Active Yeimineli Felix null, [place] [facility] [place] & [place] 2 12:57:11 Mood disorder 72695205 Active Yeimi Isidro null, [place] [facility] [place] & [place] 2 12:57:11 Attention deficit hyperactivity disorder 555352440 Active Yeimi Felix null, [place] [facility] [place] & [place] 2 12:57:11 Attention deficit hyperactivity disorder, combined type 27348777 Active Yeimi Isidro null, [place] [facility] [place] & [place] 2 12:57:11 Allergic rhinitis 26162160 Active Yeimi martinez, CAYDEN FRAIRE [facility] & [place] 2 12:57:11 Scoliosis deformity of spine 906437507 Active Yeimi martinez, CAYDEN FRAIRE [facility] & [place] 2 12:57:11 Dyssomnia 70976915 Active Yeimi martinez, CAYDEN FRAIRE [facility] & [place] 2 12:57:11 Depression - motion Active CAYDEN Ness [facility] & [place] 2 12:57:11 Notes:Problem Name: Depressi on Problem Code: [id number] Problem Code Type: SNOMED Status: Active Start_Date: 06/29/2021 - Problem Notes None recorded. Procedures Surgical History Date Name Laterality Status Provider Name and Address Organization Details Recorded Time 11/13/2012 Tonsillect flo/Adenoi dectomy completed [facility] & [place] 11/19/2024 15:05:39 Imaging Results None recorded. Procedure [...] completed Not Available Not Available Not Available [facility] COVID-19 Antigen Rapid Home Test kit USE DIRECTED 11/18 completed Not Available Not Available Not Available Vitals Date Recorded Body height Body mass index (BMI) Body mass index (BMI) [Percentile] Per age and sex Body weight Body temperature Oxygen saturation Oxygen saturation in Arterial blood by Pulse oximetry Heart rate Systolic blood pressure Diastolic blood pressure Provider Name and Address Organization Details Last Updated DateTime 5 162.56 cm 30.9 kg/m2 95 % 96214.6 3 g 98 [degF] 99 % 99 % 94 /min 120 mm[Hg] 80 mm[Hg] [facility] 5 15:05:11 Date Recorded Body height Body mass index (BMI) Body mass index (BMI) [Percentile] Per age and sex Body weight Oxygen saturation Oxygen saturation in Arterial blood by Pulse oximetry Heart rate Systolic blood pressure Diastolic blood pressure Provider Name and Address Organization Details Last Updated DateTime 5 162.56 cm 30.9 kg/m2 94 % 99600.6 3 g 98 % 98 % 91 /min 120 mm[Hg] 70 mm[Hg] [facility] 5 10:28:12 Date Recorded Body height Body mass index (BMI) [Percentile] Per age and sex Body mass index (BMI) Body weight Body temperature Oxygen saturation Oxygen saturation in Arterial blood by Pulse oximetry Heart rate Systolic blood pressure Diastolic blood pressure Provider Name and Address Organization Details Last Updated DateTime 5 162.56 cm 94 % 30.9 kg/m2 49363.6 3 g 97.9 [degF] 99 % 99 % 73 /min 120 mm[Hg] 70 mm[Hg] Shi FRAIRE [facility] & [place] 14:28:01 Social History Question Answer Notes LastModified by Organizat ion Details LastModified Time Tobacco Smoking Status Current Some Day Smoker Shi Collado null, [facility] & [place] 11/19/2024 15:05:36 Do You Have An Advance Directive? No [email or web address] Information not available 11/19/2024 Are You Blind Or Do You Have Difficulty Seeing? No [email or web address] Information not available 11/19/2024 What Was The Date Of Your Most Recent Tobacco Screening? 11/18/2024 [email or web address] Information not available 11/19/2024 Are You Passively Exposed To Smoke? No [email or web address] Information not available 11/19/2024 How Much Tobacco Do You Smoke? 0.25 PPD [email or web address] Information not available 11/19/2024 How Many Years Have You Smoked Tobacco? 3 [email or web address] Information not available 11/19/2024 Sex: Female Functional Status Question Answer Note LastModified by Organizat ion Details LastModified Time Do you use any illicit or recreational drugs? No [email or web address] Information not available 11/19/2024 What is your level of alcohol consumption? None Information not available 11/19/2024 Do you or have you ever used smokeless tobacco? Never used smokeless tobacco [email or web address] Information not available 11/19/2024 What is your exercise level? Occasional [email or web address] Information not available 11/19/2024 Mental Status Question Answer Note LastModified by Organization D etails LastModified Time Do you feel stressed (tense, restless, nervous, or anxious, or unable to sleep at night)? [id number] [email or web address] Information not available 11/19/2024 Family History Relationship Description Onset Age of this Age Resolved Age Notes LastModified by Organization Details LastModified Time Father Heart disease [email or web address] Not available 2024 15:06:08 Medical History No medical history recorded. Gynecological History Statement/Question Response Menses Monthly Y Sexually Active? Y Obstetrics History GPAL:G 0 P 0 0 0 0 Immunizations Vaccine Type Date Status Note Provider Nam e and Address Organization Details Recorded Time IPV 6 completed Yeimi martinez, CAYDEN Chung LPNT [facility] & [place] 07/24/2022 12:57:12 DTaP, 5 pertussis antigens 6 completed eYimi Molinaett null, CAYDEN Chung LPNT [facility] & [place] 07/24/2022 12:57:12 DTaP, 5 pertussis antigens 5 completed Yeimi Molinaett null, CAYDEN Chung LPNT [facility] & [place] 07/24/2022 12:57:12 HPV, unspecified formulation 6 completed Yeimi Molinaett null, CAYDEN Chung LP[facility] & [place] 07/24/2022 12:57:12 Hep B, adolescent or pediatric 6 completed Yeimi Molinaett michelle, CAYDEN Chung NT [facility] & [place] 07/24/2022 12:57:12 Hib (PRP-T) 6 completed Yeimi Molinaett null, CAYDEN Chung LPNT [facility] & [place] 07/24/2022 12:57:12 Influenza, split virus, quadrivalent, PF 2 completed Yeimi Molinaett null, [facility] & [place] 07/24/2022 12:57:12 MMR 6 completed Yeimi Molinaett null, CAYDEN LPNT [facility] & [place] 07/24/2022 12:57:12 Hib (PRP-T) 6 completed Yeimi Molinaett null, CAYDEN LP[facility] & [place] 07/24/2022 12:57:12 Hep A, ped/adol, 2 dose 6 completed Yeimi Isidro null, CAYDEN LPNT [facility] & [place] 07/24/2022 12:57:12 Hep B, adolescent or pediatric 6 completed Yeimi Molinaett null, CAYDEN LPNT [facility] & [place] 07/24/2022 12:57:12 DTaP, 5 pertussis antigens 6 completed Yeimi Molinaett null, CAYDEN Chung LPNT [facility] & [place] 07/24/2022 12:57:12 meningococcal B, OMV 1 completed Yeimi Molinaett null, [place] - [facility] - [facility] & [place] 07/24/2022 12:57:12 IPV 6 completed Yeimi Isidro null, [place] [facility] - [facility] & [place] 07/24/2022 12:57:12 Hep B, adolescent or pediatric 5 completed Yeimi Isidor null, [place] [facility] - [facility] & [place] 07/24/2022 12:57:12 Hib (PRP-T) 6 completed Yeimi Isidro null, [place] [facility] [place] & [place] 07/24/2022 12:57:12 Hib (PRP-T) 5 completed Yeimi Isidro null, [place] [facility] [place] & [place] 07/24/2022 12:57:12 IPV 6 completed Yeimi Isidro null, [place] [facility] [place] & [place] 07/24/2022 12:57:12 Hep B, adolescent or pediatric 5 completed Yeimi Isidro null, [place] [facility] [place] & [place] 07/24/2022 12:57:12 Tdap 6 completed Yeimi Isidro null, [place] [facility] - [facility] & [place] 07/24/2022 12:57:12 meningococcal B, OMV 1 completed Yeimi Felix null, [place] [facility] - [facility] & [place] 07/24/2022 12:57:12 varicella 6 completed Yeimi Isidro null, [place] [facility] [place] [facility] & [place] 07/24/2022 12:57:12 DTaP, 5 pertussis antigens 6 completed Yeimi Isidro null, [place] [facility] - [facility] & [place] 07/24/2022 12:57:12 DTaP, 5 pertussis antigens 6 completed Yeimi Isidro null, [place] [facility] [place] [facility] & [place] 07/24/2022 12:57:12 pneumococcal conjugate PCV 7 6 completed Yeimi Molinaett null, [place] [facility] - [place] & [place] 07/24/2022 12:57:12 DTaP, 5 pertussis antigens 9 completed Yeimi Molinaett null, [place] - [facility] - [place] & [place] 07/24/2022 12:57:12 Hep A, unspecified formulation 7 completed Yeimi Isidro null, [place] - [facility] - [place] & [place] 07/24/2022 12:57:12 IPV 5 completed Yeimi Molinaett null, [place] - [facility] - [place] & [place] 07/24/2022 12:57:12 pneumococcal conjugate PCV 7 5 completed Yeimi Isidro null, [place] - [facility] - [place] & [place] 07/24/2022 12:57:12 Hep B, adolescent or pediatric 6 completed Yeimi Isidro michelle, [place] - [facility] - [place] & [place] 07/24/2022 12:57:12 meningococcal MCV4P 1 completed Yeimi Isidro null, [place] - [facility] - [place] & [place] 07/24/2022 12:57:12 pneumococcal conjugate PCV 7 6 completed Yeimi Isidro null, [place] - [facility] - [place] & [place] 07/24/2022 12:57:12 varicella 8 completed Yeimi Molinaett null, [place] - [facility] - [facility] & [place] 07/24/2022 12:57:12 MMR 9 completed Yeimi Isidro null, [place] - [facility] - [place] & [place] 07/24/2022 12:57:12 IPV 9 completed Yeimi Isidro null, [place] - [facility] - [place] & [place] 07/24/2022 12:57:12 HPV, unspecified formulation 7 completed Yeimi Isidro null, [place] [facility] [place] & [place] 07/24/2022 12:57:12 Hib (PRP-T) 9 completed Yeimi Isidro null, [place] [facility] [place] & [place] 07/24/2022 12:57:12 meningococcal MCV4, unspecified formulation 6 completed Yeimi Felix [facility], [place] - [facility] - [place] & [place] 07/24/2022 12:57:12 Past Encounters Encounter ID Performer Location Encounter Start Date Encounter Closed Date Diagnosis/Indication Diagnosis SNOMED-CT Code Diagnosis ICD10 Code Diagnosis Note [id number] Calvin Brown MD [email or web address] [address] [place] [address] [place] [address] 11/19/2024 14:55:37 11/19/2024 15:34:25 Migraine 33665147 G43.909 Frequent headache 307069 003 R51.9 [id number] Calvin Brown MD [email or web address] [address] [facility] [place] [address] 12/03/2024 10:09:31 12/03/2024 11:28:18 Migraine 61775640 G43.909 Gastroesop hageal reflux disease without esophagitis 220418239 K21.9 [id number] Calvin Brown MD [email or web address] [address] [facility] [place] [address] 03/03/2025 13:59:36 03/03/2025 15:16:33 Gestation period, 12 weeks 16464835 Z3A.12 Near syncope 085095991 R 55 Health Concerns Section Related Observation LastModified by Organization Detai ls LastModified Time None Recorded Concern Status LastModified by Organization Details LastModified Time None Recorded Advance Directives Directive N: Payers Insurance Date Sequence Insurance Name Policy Number Policy Grimm Covered Member ID Grimm Member ID Guarantor Name 03/01/2025 1 [employer] [facility] (MEDICAID HMO) Meredith Hewitt [id number] Meredith Nelly Notes Date Note Type Note Provider Name and Address Organization Details Recorded Time 11/19/2024 text/html Meredith is a 19 y o female who presents to the clinic today for evaluation. Patient is here today for evaluation. Patient was diagnosed with migraine headaches when she was younger she states she has been taking ibuprofen which has been working in the past. Sometimes she does have sensitivity to light. Patient is taking Tylenol and 800 mg of ibuprofen [id number]. Patient states that she does not have any chance of her last menstrual cycle was 2 weeks ago. Patient has no other issues or new complaints. Marianna Serna PA-C [address], [place], [address], [facility] & [place] 11/19/2024 16:14:49 12/03/2024 text/html Meredith is a 19 y o Female who presents to the clinic today for evaluation. Patient has a history of gastroesophageal reflux disease. She requests refills of her medication today. Patient is here to follow-up on migraines. Patient recently had blood work and is here for those test results she also recently had an MRI of her head. Patient has tried over the counter NSAIDs and Excedrin without improvement of her symptoms. Patient denies any other issues or new complaints. Marianna Serna PA-C [address] [facility] [facility] [address], [place], [address], [facility] & [place] 12/03/2024 13:29:22 03/03/2025 text/html Meredith is a 19 y [...] no other issues or new complaints. Marianna Serna PA-C [address], [place], [address], [facility] & [place] 03/04/2025 11:08:44 OBGyn Episode No OBEpisode recorded.
--- NOTE | 2025-04-28 13:00 | US_ITS ---
PROCEDURE: US OB /MATERNAL DETAIL CLINICAL INDICATION: 20 week anatomy COMPARISON: There are no previous examinations. FINDINGS: Transabdominal sonographic images of the pelvis were obtained. From her established due date she is 20 weeks 1 day. Single viable intrauterine gestation. Breech position. Placenta: Posteriorplacenta grade 1. There is an average amount of fluid. The cervix appears satisfactory. Closed and measuring in length. Complete survey performed and was unremarkable on the submitted images as in PACS. No discrete anomalies identified on survey imaging by technologist. Active fetus. Three-vessel cord with satisfactory umbilical cord insertion. 4- chamber heart noted. Situs, aortic arch, LVOT, RVOT, three-vessel view appear normal. There is an intracardiac echogenic foci within the left ventricle. Survey of brain & ventricles Unremarkable. Cerebellum, thalamus, choroid plexus, cisterna magna appear normal. Face and neck survey unremarkable. Profile, nasion, lips and nose appeared normal. Diaphragm and chest views unremarkable. Abdomen: Both kidneys noted and unremarkable. Stomach and bladder noted and satisfactory. Spine: Survey of the spine satisfactory with no anomalies identified nor imaged. Cervical, thoracic, lower spine appear normal. Both arms and legs noted. Amniotic Fluid: Adequate. MVP 4.3 cm Measurements: Average ultrasound age 21weeks 0 days. Estimated due date by ultrasound age 1009/08/2025. Estimated weight 406g BPD = 20weeks 4days HC = 20weeks 5days AC = 21weeks 4days FL = 21weeks 1day Growth Percentile= 94 Heart Rate = 142bpm Cerebellum = 19weeks 4days Humerus = 22weeks HC/AC is 1.12 FL/BPD is 0.73 FL/AC is 0.21 IMPRESSION: 1. Viable fetus in the breech presentation with a posterior placenta grade 1. 2. The fluid is within normal limits with an MVP 4.30 cm 3. There is an echogenic foci within the left ventricle and would suggest follow-up scan at 28 weeks. 4. The rest of the anatomical scan appears normal. 5. biometry is consistent with the dates. Dictated by: Mauro Louis MD 04/28/2025 15:56 Mauro Louis MD in OV 04/28/2025 15:56
== END 2025-04-28 23:59 | disposition home or self-care (01) ==
LOC: RAD 12:41
PROVIDERS: PCP Family Medicine; Visit Provider Obstetrics & Gynecology
DX: O09.292 Supervision of pregnancy with other poor reproductive or obstetric history, second trimester (principal); O32.1XX0 Maternal care for breech presentation, not applicable or unspecified; O28.3 Abnormal ultrasonic finding on antenatal screening of mother; Z3A.20 20 weeks gestation of pregnancy
CPT/HCPCS: 76811

== ENCOUNTER 2025-07-07 08:59 | Outpatient (CLI) | payer OTHER, SELFPAY ==
[2025-07-07 09:24] LABS: Hematocrit 30.6 % (37.0-47.0); Hemoglobin 9.9 g/dL (12.2-16.2); Immature Granulocytes % 0.6 %; Mean Corpuscular HGB Conc 32.4 g/dL (31.8-35.4); Mean Corpuscular Hemoglobin 28.9 pg (27.0-31.2); Mean Corpuscular Volume 89.2 fl (81-99); Nucleated Red Blood Cells % 0 %; Platelet Count 247 K/mm3 (142-424); Red Blood Count 3.43 M/mm3 (4.20-5.40); Red Cell Distribution Width-SD 48.6 fL; White Blood Count 11.4 K/mm3 (4.5-13.0)
--- OUTSIDE RECORDS SUMMARY | 2025-07-07 09:37 | XMS_ITS | Clinical Summary ---
Author Organization [facility] Address [address] [place] [address] Care Team Providers Care Television Camera Operator Name Role Phone Provider, No Known Primary Care Provider Unavail able Allergies No known active allergies Medications famotidine (PEPCID) 20 MG tablet Take 1 tablet by mouth 2 (Two) Times a Day. Active ferrous sulfate 325 (65 FE) MG tablet Take 1 tablet by mouth Daily With Breakfast. Active vitamin (, CLASSIC, vitamin) tablet Take by mouth Daily. Active Active Problems Problem Noted Date Diagnosed Date Pre-syncope 04/03/2025 Assessment & Plan (04/03/2025 5:16 PM EDT): On set of complaint was 6 months ago. Reports that if she stands a long time or gets hot then she will experience lightheadedness, weakness and feeling like her heart is beating fast. She reports that she will sit and the episodes will improve. She denies passing out. Plan: Discussed safety: -Do not stand for long periods -Avoid heat, avoid hot showers or hot bathing -Increase hydration -Avoid caffeine and energy drinks -Wear compression socks on in the day off at night Check an EKG Check a 2-week heart monitor Check an echocardiogram Check blood pressure and heart rate at home daily and with any episode and return log with her next follow-up visit Follow-up after studies to review the findings Heart rate fast 04/03/2025 Assessment & Plan (04/03/2025 5:13 PM EDT): She reports that during the episodes of lightheadedness feeling hot feeling weak and she will have a fast heart rate. She feels like she may pass out. She will sit down and the episode will subside. Plan: 2-week heart monitor for fast heart rate Check an echo Follow-up after studies to review the finding IUP (intrauterine ), incidental 025 Assessment & Plan (04/03/2025 5:14 PM EDT): She is 16 weeks intrauterine . She reports that the presyncope started before . She reports started 6 months ago. Has not worsened with . History of gestational hypertension 04/03/2025 Assessment & Plan (04/03/2025 5:12 PM EDT): She reports that she did have gestational hypertension during her first . Gestational hypertension occurred during her third trimester. She was given labetalol. She is off of this medication after the delivery of her first child. She is now 16 weeks intrauterine with her second child. We discussed that we would like her to monitor her blood pressure and heart rate and log and bring back to her next visit. anomaly suspected but not found 01/09/2024 Assessment & Plan (01/09/2024 12:26 PM EST): Previous concern for normal spleen by primary CAREERS ADVISER. Spleen is noted today though overall appears normal. Gestational hypertension wit hout significant proteinuria in third trimester 01/09/2024 Assessment & Plan (01/09/2024 12:27 PM EST): Patient with a diagnosis of gestational hypertension on labetalol 200 twice daily. Blood pressure today 116/65. Patient without complaints of preeclampsia. States she will be delivered at 37 weeks for gestational hypertension. We discussed preeclampsia precautions. Overall growth appears normal today though abdominal circumference is at the 12 percentile. Would recommend growth ultrasound at 36 weeks in your office. Encounters Date Type Department Care Team Description 04/28/2025 Results Follow-Up [facility] [address] [place] [phone] Veronica Hudson APRN from Last 3 Months Family History Medical History Relation Name Comments Heart disease Father Relation Name Status Comments Father Social History Tobacco Use Types Packs/Day Years Used Date Smoking Tobacco: Former Cigarettes Passive Smoke Exposure: Past Smokeless Tobacco: Never Tobacco Cessation:Counseling Given: Not Answered Alcohol Use Standard Drinks/Week Comments Not Currently 0 (1 standard drink = 0.6 oz pur e alcohol) Comments Unknown Sex and Gender Information Value Date Recorded Sex Assigned at Not on file Legal Sex Female 10:56 AM EDT Gender Identity Not on file Sexual Orientation Not on file Last Filed Vital Signs Vital Sign Reading Time Taken Comments Blood Pressure 136/60 04/03/2025 12:51 PM EDT Pulse 99 04/03/2025 12:51 PM EDT Temperature - - Respiratory Rate - - Oxygen Saturation 98% 04/03/2025 12:51 PM EDT Inhaled Oxygen Concentration - - Weight 81.7 kg (180 lb 1.6 oz) 04/03/2025 12:51 PM EDT Height 167.6 cm (5' 6 ) 04/03/2025 12:51 PM EDT Body Mass Index 29.07 04/03/2025 12:51 PM EDT Plan of Treatment Health Maintenance Due Date Last Done Comments ANNUAL PHYSICAL 01/03/2024 HEPATITIS C SCREENING 01/03/2024 COVID-19 Vaccine (3 - 2023- season) 2024 08/02/2021, 07/03/2021 INFLUENZA VACCINE 08/13/2025 02/16/2022 TDAP/TD VACCINES (3 - Td or Tdap) 01/11/2034 01/12/2024, 05/19/2016 Pneumococcal Vaccine 0-49 Aged Out 2005, 01/30/2006, 2005, Additional history exists No longer eligible based on patient's age to complete this topic HPV VACCINES Completed 12/06/2016, 05/19/2016 MENINGOCOCCAL VACCINE Completed 08/13/2021, 016 MENINGOCOCCAL B VACCINE Completed 09/14/2021, 08/13 Insurance [facility] Care Teams Television Camera Operator Relationship Specialty Start Date End Date Provider, [place] [address] PCP - General 01/03/24
[2025-07-07 11:12] LABS: Glucose 1 Hour 145 mg/dL (74-100)
[2025-07-07] MEDS: RHO(D) IMMUNE GLOBULIN 1,500 UNIT (300MCG) SYRINGE 300 MCG IM (11:21)
[2025-07-07 11:24] VITALS: BP 122/70; PULSE 115; RESP 18; TEMP 36.6; O2SAT 97
[2025-07-08 07:39] LABS: RPR W/RFX Titers Nonreactive (Nonreactive)
== END 2025-07-07 11:24 | disposition home or self-care (01) ==
LOC: INF 09:00
PROVIDERS: PCP Family Medicine; Visit Provider Obstetrics & Gynecology
DX: O13.3 Gestational [pregnancy-induced] hypertension without significant proteinuria, third trimester (principal); O26.899 Other specified pregnancy related conditions, unspecified trimester; Z67.91 Unspecified blood type, Rh negative; Z3A.00 Weeks of gestation of pregnancy not specified
CPT/HCPCS: 36415; 82947; 85025; 86592; 96372; J2790

== ENCOUNTER 2025-07-10 10:17 | Outpatient (CLI) | payer OTHER, SELFPAY ==
--- OUTSIDE RECORDS SUMMARY | 2025-07-10 10:25 | XMS_ITS | Clinical Summary ---
Author Organization [facility] Address [address] [place] [address] Care Team Providers Care Director Of Cardiology Service Line Name Role Phone Provider, No Known Primary [...] Previous concern for normal spleen by primary CREDIT INTERVIEWER. Spleen is noted today though overall appears [...] Department Care Team Description 04/28/2025 Results Follow-Up [facility] [address] [phone] Veronica Hudson APRN from Last 3 Months [...] B VACCINE Completed 09/14/2021, 08/13 Insurance [facility] Care Teams Director Of Cardiology Service Line Relationship Specialty Start Date End Date Provider, [place] [address] PCP - General 01/03/24
[2025-07-10 11:42] LABS: Ferritin 7.69 ng/ml (6.24-137)
[2025-07-10 12:01] LABS: Glucose 1 Hour 143 mg/dL (74-100)
[2025-07-10 12:16] LABS: Glucose,Fasting 93 mg/dl (74-100)
[2025-07-10 13:18] LABS: Glucose 2 Hour 123 mg/dL (74-100)
[2025-07-10 14:01] LABS: Glucose 3 Hour 127 mg/dL (74-100)
== END 2025-07-10 23:59 | disposition home or self-care (01) ==
PROVIDERS: PCP Family Medicine; Visit Provider Obstetrics & Gynecology
DX: O36.63X0 Maternal care for excessive fetal growth, third trimester, not applicable or unspecified (principal); O99.343 Other mental disorders complicating pregnancy, third trimester; Z3A.37 37 weeks gestation of pregnancy; O28.3 Abnormal ultrasonic finding on antenatal screening of mother; Z87.59 Personal history of other complications of pregnancy, childbirth and the puerperium; F32.9 Major depressive disorder, single episode, unspecified
CPT/HCPCS: 36415; 82728; 82951; 87086

== ENCOUNTER 2025-07-11 13:51 | Outpatient (CLI) | payer OTHER, SELFPAY ==
--- OUTSIDE RECORDS SUMMARY | 2025-07-11 13:53 | XMS_ITS | Clinical Summary ---
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 Spleen is noted today though overall appears [...] Department Care Team Description 04/28/2025 Results Follow-Up [facility] [address] [phone] Veronica Hudson APRN from Last 3 Months [...] B VACCINE Completed 09/14/2021, 08/13 Insurance [facility] Care Teams Account Services Specialist Relationship Specialty Start Date End Date Provider, [place] [address] PCP - General 01/03/24
--- NOTE | 2025-07-11 14:30 | US_ITS ---
PROCEDURE: US OB BIOPHYSICAL PROFILE CLINICAL INDICATION: LGA COMPARISON: US US OB /MATERNAL DETAIL from 04/28/2025 FINDINGS: Transabdominal sonographic images of the uterus were obtained. From her established due date she is 30weeks 5days. The following parameters are obtained: Viable Fetus in the cephalic presentation with a posterior placenta grade 2. Average ultrasound age is 31weeks 3days Estimated weight 1,620g, 3 lb 9 oz The cervix measures 3.20 cm in length. Measurements: heart Rate = 139bpm BPD = 32weeks 1day, 79 percentile HC = 32weeks 1day, 51 percentile AC = 30weeks 2days, 30 percentile FL = 30weeks 6days, 36 percent HC/AC is 1.12 FL/BPD is 0.74 FL/AC is 0.23 36 percentile Amniotic fluid index: 15.15cm, MVP 4.76 cm Qualitative AFV:2 Breathing movements: 2 Gross Body Movements: 2 Tone: 2 Biophysical profile score: 8 No obvious anomalies evident.Kidneys, profile, bladder, stomach, three-vessel cord appear normal. IMPRESSION: 1. Viable fetus in the cephalic presentation with a posterior placenta grade 2. 2. The fluid is within normal limits with an amniotic fluid index 15.15 cm, MVP 4.76 cm. 3. Biophysical profile is 8/8 with good breathing movement and movement seen. 4. There has been good interval growth with the fetus currently 36th percentile. 5. Limited anatomical scan appears normal. Dictated by: Mauro Louis MD 07/12/2025 07:00 Mauro Louis MD in OV 07/12/2025 07:00
== END 2025-07-11 23:59 | disposition home or self-care (01) ==
LOC: RAD 13:52
PROVIDERS: PCP Obstetrics & Gynecology; Visit Provider Obstetrics & Gynecology
DX: O13.3 Gestational [pregnancy-induced] hypertension without significant proteinuria, third trimester (principal); O36.63X0 Maternal care for excessive fetal growth, third trimester, not applicable or unspecified; O28.3 Abnormal ultrasonic finding on antenatal screening of mother; O99.820 Streptococcus B carrier state complicating pregnancy; O26.893 Other specified pregnancy related conditions, third trimester; Z67.91 Unspecified blood type, Rh negative; Z3A.30 30 weeks gestation of pregnancy
CPT/HCPCS: 76816; 76819

== ENCOUNTER 2025-08-21 13:15 | Outpatient (CLI) | payer OTHER, SELFPAY ==
--- OUTSIDE RECORDS SUMMARY | 2025-08-22 01:59 | XMS_ITS | Clinical Summary ---
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 Spleen is noted today though overall appears [...] ultrasound at 36 weeks in your office. Family History Medical History Relation Name Comments [...] ANNUAL PHYSICAL 01/03/2024 HEPATITIS C SCREENING 01/03/2024 INFLUENZA VACCINE 06/13/2025 02/16/2022 TDAP/TD VACCINES (3 - Td or Tdap) 01/11/2034 01/12/2024, 05/19/2016 Pneumococcal Vaccine 0-49 Aged Out 2005, 01/30/2006, 2005, Additional history exists No longer eligible based on patient's age to complete this topic HPV VACCINES Completed 12/06/2016, 05/19/2016 MENINGOCOCCAL VACCINE Completed 08/13/2021, 016 MENINGOCOCCAL B VACCINE Completed 09/14/2021, 08/13 Insurance [facility] Care Teams Sterile Supply Technician Relationship Specialty Start Date End Date Provider, [place] [address] PCP - General 01/03/24
== END 2025-08-21 23:59 | disposition home or self-care (01) ==
LOC: LAB.DROPOF 08-22 01:58
PROVIDERS: PCP Obstetrics & Gynecology; Visit Provider Obstetrics & Gynecology
DX: O28.3 Abnormal ultrasonic finding on antenatal screening of mother (principal); O36.60X0 Maternal care for excessive fetal growth, unspecified trimester, not applicable or unspecified; O09.299 Supervision of pregnancy with other poor reproductive or obstetric history, unspecified trimester; O09.891 Supervision of other high risk pregnancies, first trimester; R31.9 Hematuria, unspecified; Z3A.00 Weeks of gestation of pregnancy not specified
CPT/HCPCS: 86403; 87086

== ENCOUNTER 2025-09-08 14:36 | Inpatient (IN) | payer OTHER, SELFPAY ==
[2025-09-08 14:46] VITALS: BMI 35.2
--- NOTE | 2025-09-08 15:04 | P.CONPHA_ITS ---
Pharmacy Intervention Comments: MEDICATION RECONCILIATION COMPLETED ON PATIENT USING EXTERNAL FILL HISTORY FROM PHARMACY AND LIST FROM METAL MOLDER OFFICE. -NANCI BLANCOD
--- NOTE | 2025-09-08 15:04 | HMH.PHAINT1 ---
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 -NANCI BLANCOD
[2025-09-08 15:29] LABS: Hematocrit 29.0 % (37.0-47.0); Hemoglobin 9.4 g/dL (12.2-16.2); Immature Granulocytes % 0.6 %; Mean Corpuscular HGB Conc 32.4 g/dL (31.8-35.4); Mean Corpuscular Hemoglobin 28.7 pg (27.0-31.2); Mean Corpuscular Volume 88.4 fl (81-99); Nucleated Red Blood Cells % 0 %; Platelet Count 320 K/mm3 (142-424); Red Blood Count 3.28 M/mm3 (4.20-5.40); Red Cell Distribution Width-SD 47.5 fL; White Blood Count 10.6 K/mm3 (4.5-13.0)
[2025-09-08 15:34] LABS: Microscopic, Urine URINE MICROSCOPIC (MICROSCOPIC)
--- OUTSIDE RECORDS SUMMARY | 2025-09-08 15:35 | XMS_ITS | Clinical Summary ---
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 Spleen is noted today though overall appears [...] MENINGOCOCCAL B VACCINE Completed 09/14/2021, 08/[address] [facility] Care Teams Tablet Technician Relationship Specialty Start Date End Date Provider, [place] [address] PCP - General 01/03/24
--- OUTSIDE RECORDS SUMMARY | 2025-09-08 15:35 | XMS_ITS | Data Portability ---
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 Plan of Treatment Reminders Order Date Submit Date Provider Last Modified By Organization Details Last Modified Time Details Appointments None recorded. Lab CBC w/ auto diff 2024 025 [facility], [address], [place], [address], 5 11:23:49 CMP, serum or plasma 2024 025 [facility], [address], [place], [address], 5 11:23:50 TSH + free T4, serum 2024 025 [facility], [address], [place], [address], 5 11:23:48 HbA1c (hemoglobin A1c), blood 2024 025 [facility], [address], [place], [address], 5 11:23:52 magnesium, serum or plasma 2024 025 [facility], [address], [place], [address], 5 11:23:54 cobalamin and folate panel, serum 2024 025 [facility], [address], [address], [place], [address], 5 11:23:51 vitamin D, 25-hydroxy, total, serum 2024 025 [facility], [address], [address], [place], [address], 5 11:23:53 iron + TIBC + ferritin, serum 2024 025 [facility], [address], [address], [place], [address], 5 11:23:47 CMP, serum or plasma 2024 025 [facility], [address], [address], [place], [address], 5 07:11:49 CBC w/ auto diff 2024 025 [facility], [address], [address], [place], [address], 5 07:11:48 iron + total iron-bindin g capacity (TIBC), serum 2024 025 [facility], [address], [address], [place], [address], 5 07:11:50 vitamin B12 + folate, serum or blood 2024 025 [facility], [address], [address], [place], [address], 5 07:11:46 TSH + free T4, serum 2024 025 [facility], [address], [address], [place], [address], 5 07:11:46 magnesium, serum or plasma 2024 025 [facility], [address], [address], [place], [address], 5 07:11:51 hCG, qualitative , serum 2024 025 [email or web address], [address], [address], [place], [address], 5 07:56:39 Referral obstetricia n and gynecologis t referral - Dr. Wallace in [facility] 2024 025 [place] [id number] Mary Kay Wallace DO, [address], [address], [place], [address], 07:54:31 cardiologis t referral - Dr. Parham see if they can see her this week 2024 025 [place] [id number] Mindy Huff MD, [address], [place], [address], 5 07:54:30 Procedures None recorded. Surgeries None recorded. Imaging MRI, head, w/o contrast 2024 025 [email or web address], [address] , [place], [address], 5 07:12:07 Medication Orders sumatriptan 25 mg tablet 2024 025 [facility], [address] [place], [address], 5 14:56:54 famotidine 20 mg tablet 2024 025 [facility], [address] [place], [address], 11:00:08 Patient TargetsNo targets recorded. Patient InstructionsNo instructions recorded. Reason for Referral [place] Referral for Ne ar syncope Dr. 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 Wallace in [facility] Referring Physician: Marianna Serna, [facility], Encounter Date: 03/03/2025 Results Created Date Observation Date Name Description Value Unit Range Abnormal Flag Note LastModifiedBy Organization Detail LastModifiedTime 11/19/1911/19/2024 VITAM IN B12+F OLATE homocyst(E)i ne Not Available [facility] ([facility]) [address] [place], [address], 11/20/2024 07:11:46 11/19/19 25 11/19/2024 VITAM IN B12+F OLATE methylmaloni c acid, serum Not Available [facility] ([facility]) [address] [place], [address], 11/20/2024 07:11:46 11/19/19 25 11/20/2024 VITAM IN B12+F OLATE vitamin B12 331 pg/mL 232-12 45 normal Not Available [facility] ([facility]) [address] [place], [address], 11/20/2024 07:11:46 11/19/19 25 11/20/2024 VITAM IN B12+F OLATE folate (folic acid), serum 3.1 NG/mL >3.0 normal A serum folat e eduardo ntrat ion of less than 3.1 ng/mL is consi dered to repre sent clini clark defic iency . Not Available [facility] ([facility]) [address] [place], [address], 11/20/2024 07:11:46 11/19/1911/20/2024 TSH+F REE T4 TSH 1.260 uIU/m L 0.450- 4.500 normal Not Available [facility] ([facility]) [address] [facility], [place], [address], 11/20/2024 07:11:46 11/19/1911/20/2024 TSH+F REE T4 T4,free(dire ct) 1.17 NG/dL 0.93-1 .60 normal Not Available [facility] ([facility]) [address] [place], [address], 11/20/2024 07:11:46 11/19/19 25 11/20/2024 CBC WITH DIFFE RENTI AL/PL ATELE T WBC 8.0 x10e3 /uL 3.4-10 .8 normal Not Available [facility] ([facility]) [address] [place], [address], 11/20/2024 07:11:48 11/19/1911/20/2024 CBC WITH DIFFE RENTI AL/PL ATELE T RBC 4.35 x10e6 /uL 3.77-5 .28 normal Not Available [facility] ([facility]) [address] [place], [address], 11/20/2024 07:11:48 11/19/1911/20/2024 CBC WITH DIFFE RENTI AL/PL ATELE T hemoglobin 11.2 g/dL 11.1-1 5.9 normal Not Available [facility] ([facility]) [address] [place], [address], 11/20/2024 07:11:48 11/19/19 25 11/20/2024 CBC WITH DIFFE RENTI AL/PL ATELE T hematocrit 33.9 % 34.0-4 6.6 below low normal Not Available [facility] ([facility]) [address] [facility], [place], [address], 11/20/2024 07:11:48 11/19/19 25 11/20/2024 CBC WITH DIFFE RENTI AL/PL ATELE T MCV 78 fL 79-97 below low normal Not Available [facility] ([facility]) [address] [facility], [place], [address], 11/20/2024 07:11:48 11/19/19 25 11/20/2024 CBC WITH DIFFE RENTI AL/PL ATELE T MCH 25.7 pg 26.6-3 3.0 below low normal Not Available [facility] ([facility]) [address] [facility], [place], [address], 11/20/2024 07:11:48 11/19/19 25 11/20/2024 CBC WITH DIFFE RENTI AL/PL ATELE T MCHC 33.0 g/dL 31.5-3 5.7 normal Not Available [facility] ([facility]) [address] [facility], [place], [address], 11/20/2024 07:11:48 11/19/19 25 11/20/2024 CBC WITH DIFFE RENTI AL/PL ATELE T RDW 13.8 % 11.7-1 5.4 Not Available [facility] ([facility]) [address] [facility], [place], [address], 11/20/2024 07:11:48 11/19/1911/20/2024 CBC WITH DIFFE RENTI AL/PL ATELE T platelets 310 x10e3 /uL 150-45 0 normal Not Available [facility] ([facility]) [address] [place], [address], 11/20/2024 07:11:48 11/19/19 25 11/20/2024 CBC WITH DIFFE RENTI AL/PL ATELE T neutrophils 67 % not estab. normal Not Available [facility] ([facility]) [address] [facility], [place], [address], 11/20/2024 07:11:48 11/19/19 25 11/20/2024 CBC WITH DIFFE RENTI AL/PL ATELE T lymphs 24 % not estab. normal Not Available [facility] ([facility]) [address] [facility], [place], [address], 11/20/2024 07:11:48 11/19/19 25 11/20/2024 CBC WITH DIFFE RENTI AL/PL ATELE T monocytes 6 % not estab. normal Not Available [facility] ([facility]) [address] [facility], [place], [address], 11/20/2024 07:11:48 11/19/19 25 11/20/2024 CBC WITH DIFFE RENTI AL/PL ATELE T eos 2 % not estab. normal Not Available [facility] ([facility]) [address] [facility], [place], [address], 11/20/2024 07:11:48 11/19/19 25 11/20/2024 CBC WITH DIFFE RENTI AL/PL ATELE T basos 1 % not estab. normal Not Available [facility] ([facility]) [address] [facility], [place], [address], 11/20/2024 07:11:48 11/19/19 25 11/20/2024 CBC WITH DIFFE RENTI AL/PL ATELE T immature cells RETAIL RESET MERCHANDISER Not Available [facility] ([facility]) [address] [facility], [place], [address], 11/20/2024 07:11:48 11/19/19 25 11/20/2024 CBC WITH DIFFE RENTI AL/PL ATELE T neutrophils (absolute) 5.4 x10e3 /uL 1.4-7. 0 normal Not Available [facility] ([facility]) [address] [facility], [place], [address], 11/20/2024 07:11:48 11/19/19 25 11/20/2024 CBC WITH DIFFE RENTI AL/PL ATELE T lymphs (absolute) 1.9 x10e3 /uL 0.7-3. 1 normal Not Available [facility] ([facility]) [address] [facility], [place], [address], 11/20/2024 07:11:48 11/19/19 25 11/20/2024 CBC WITH DIFFE RENTI AL/PL ATELE T monocytes(ab solute) 0.5 x10e3 /uL 0.1-0. 9 normal Not Available [facility] ([facility]) [address] [place], [address], 11/20/2024 07:11:48 11/19/19 25 11/20/2024 CBC WITH DIFFE RENTI AL/PL ATELE T eos (absolute) 0.1 x10e3 /uL 0.0-0. 4 normal Not Available [facility] ([facility]) [address] [facility], [place], [address], 11/20/2024 07:11:48 11/19/19 25 11/20/2024 CBC WITH DIFFE RENTI AL/PL ATELE T baso (absolute) 0.0 x10e3 /uL 0.0-0. 2 normal Not Available [facility] ([facility]) [address] [facility], [place], [address], 11/20/2024 07:11:48 11/19/19 25 11/20/2024 CBC WITH DIFFE RENTI AL/PL ATELE T immature granulocytes 0 % not estab. Not Available [facility] ([facility]) [address] [place], [address], 11/20/2024 07:11:48 11/19/19 25 11/20/2024 CBC WITH DIFFE RENTI AL/PL ATELE T immature grans (abs) 0.0 x10e3 /uL 0.0-0. 1 Not Available [facility] ([facility]) [address], [place], [address], 11/20/2024 07:11:48 11/19/19 25 11/20/2024 CBC WITH DIFFE RENTI AL/PL ATELE T NRBC RETAIL RESET MERCHANDISER Not Available [facility] ([facility]) [address], [place], [address], 11/20/2024 07:11:48 11/19/19 25 11/20/2024 CBC WITH DIFFE RENTI AL/PL ATELE T hematology comments: RETAIL RESET MERCHANDISER Not Available [facility] ([facility]) [address], [place], [address], 11/20/2024 07:11:48 11/19/19 25 11/20/2024 COMP. METAB OLIC PANEL (14) glucose 88 mg/dL 70-99 normal Not Available [facility] ([facility]) [address], [place], [address], 11/20/2024 07:11:49 11/19/19 25 11/20/2024 COMP. METAB OLIC PANEL (14) BUN 8 mg/dL 6-20 normal Not Available [facility] ([facility]) [address] [place], [address], 11/20/2024 07:11:49 11/19/19 25 11/20/2024 COMP. METAB OLIC PANEL (14) creatinine 0.76 mg/dL 0.57-1 .00 normal Not Available [facility] ([facility]) [address] [place], [address], 11/20/2024 07:11:49 11/19/19 25 11/20/2024 COMP. METAB OLIC PANEL (14) eGFR 116 mL/mi n/1.7 3 >59 normal Not Available [facility] ([facility]) [address] [place], [address], 11/20/2024 07:11:49 11/19/19 25 11/20/2024 COMP. METAB OLIC PANEL (14) BUN/creatini ne ratio 11 9-23 normal Not Available [facility] ([facility]) [address] [facility] [place], [address], 11/20/2024 07:11:49 11/19/19 25 11/20/2024 COMP. METAB OLIC PANEL (14) sodium 138 mmol/ L 134-14 4 normal Not Available [facility] ([facility]) [address] [facility], [place], [address], 11/20/2024 07:11:49 11/19/19 25 11/20/2024 COMP. METAB OLIC PANEL (14) potassium 4.4 mmol/ L 3.5-5. 2 normal Not Available [facility] ([facility]) [address] [facility], [place], [address], 11/20/2024 07:11:49 11/19/19 25 11/20/2024 COMP. METAB OLIC PANEL (14) chloride 103 mmol/ L 96-106 normal Not Available [facility] ([facility]) [address] [facility] [place], [address], 11/20/2024 07:11:49 11/19/19 25 11/20/2024 COMP. METAB OLIC PANEL (14) carbon dioxide, total 22 mmol/ L 20-29 normal Not Available [facility] ([facility]) [address] [facility] [place], [address], 11/20/2024 07:11:49 11/19/19 25 11/20/2024 COMP. METAB OLIC PANEL (14) calcium 9.9 mg/dL 8.7-10 .2 normal Not Available [facility] ([facility]) [address] [facility] [place], [address], 11/20/2024 07:11:49 11/19/19 25 11/20/2024 COMP. METAB OLIC PANEL (14) protein, total 7.1 g/dL 6.0-8. 5 normal Not Available [facility] ([facility]) [address] [facility] [place], [address], 11/20/2024 07:11:49 11/19/19 25 11/20/2024 COMP. METAB OLIC PANEL (14) albumin 4.5 g/dL 4.0-5. 0 normal Not Available [facility] ([facility]) [address] [facility] [place], [address], 11/20/2024 07:11:49 11/19/19 25 11/20/2024 COMP. METAB OLIC PANEL (14) globulin, total 2.6 g/dL 1.5-4. 5 Not Available [facility] ([facility]) [address] [facility] [place], [address], 11/20/2024 07:11:49 11/19/19 25 11/20/2024 COMP. METAB OLIC PANEL (14) bilirubin, total 0.3 mg/dL 0.0-1. 2 normal Not Available [facility] ([facility]) [address] [facility] [place], [address], 11/20/2024 07:11:49 11/19/19 25 11/20/2024 COMP. METAB OLIC PANEL (14) alkaline phosphatase 98 IU/L 42-106 normal Not Available [facility] ([facility]) [address] [facility] [place], [address], 11/20/2024 07:11:49 11/19/19 25 11/20/2024 COMP. METAB OLIC PANEL (14) AST (SGOT) 14 IU/L 0-40 normal Not Available [facility] ([facility]) [address] [facility] [place], [address], 11/20/2024 07:11:49 11/19/19 25 11/20/2024 COMP. METAB OLIC PANEL (14) ALT (SGPT) 10 IU/L 0-32 normal Not Available [facility] ([facility]) [address] [place], [address], 11/20/2024 07:11:49 11/19/19 25 11/20/2024 IRON AND TIBC iron bind.cap.(TI BC) 338 ug/dL 250-45 0 normal Not Available [facility] ([facility]) [address] [place], [address], 11/20/2024 07:11:50 11/19/19 25 11/20/2024 IRON AND TIBC UIBC 295 ug/dL 131-42 5 normal Not Available [facility] ([facility]) [address] [place], [address], 11/20/2024 07:11:50 11/19/19 25 11/20/2024 IRON AND TIBC iron 43 ug/dL 27-159 normal Not Available [facility] ([facility]) [address] [place], [address], 11/20/2024 07:11:50 11/19/19 25 11/20/2024 IRON AND TIBC iron saturation 13 % 15-55 below low normal Not Available [facility] ([facility]) [address] [place], [address], 11/20/2024 07:11:50 11/19/19 25 11/20/2024 MAGNE SIUM magnesium 2.1 mg/dL 1.6-2. 3 normal Not Available [facility] ([facility]) [address] [place], [address], 11/20/2024 07:11:51 11/19/19 25 11/20/2024 HCG,B ETA SUBUN IT,QU AL HCG,beta subunit,qual Negati ve mIU/m L negati ve <6 Not Available [facility] ([facility]) [address] [place], [address], 11/20/2024 07:11:52 11/19/19 25 11/20/2024 VITAM IN B12+F OLATE vitamin B12 331 pg/mL 232-12 45 normal Not Available [facility] ([facility]) [address] [facility], [place], [address], 11/23/2024 07:10:30 11/19/19 25 11/20/2024 VITAM IN B12+F OLATE folate (folic acid), serum 3.1 NG/mL >3.0 normal A serum folat e eduardo ntrat ion of less than 3.1 ng/mL is consi dered to repre sent clini clark defic iency . Not Available [facility] ([facility]) [address] [facility], [place], [address], 11/23/2024 07:10:30 11/19/19 25 11/21/2024 VITAM IN B12+F OLATE homocyst(E)i ne 11.0 umol/ L 0.0-14 .5 Not Available [facility] ([facility]) [address] [place], [address], 11/23/2024 07:10:30 11/19/19 25 11/23/2024 VITAM IN B12+F OLATE methylmaloni c acid, serum 130 nmol/ L 0-378 Not Available [facility] ([facility]) [address] [place], [address], 11/23/2024 07:10:30 03/03/20 25 03/04/2025 FE+TI BC+FE R iron bind.cap.(TI BC) 302 ug/dL 250-45 0 normal Not Available [facility] ([facility]) [address] [place], [address], 03/04/2025 11:23:47 03/03/20 25 03/04/2025 FE+TI BC+FE R UIBC 230 ug/dL 131-42 5 normal Not Available [facility] ([facility]) [address] [place], [address], 03/04/2025 11:23:47 03/03/20 25 03/04/2025 FE+TI BC+FE R iron 72 ug/dL 27-159 normal Not Available [facility] ([facility]) [address] [place], [address], 03/04/2025 11:23:47 03/03/20 25 03/04/2025 FE+TI BC+FE R iron saturation 24 % 15-55 normal Not Available [facility] ([facility]) [address] [place], [address], 03/04/2025 11:23:47 03/03/20 25 03/04/2025 FE+TI BC+FE R ferritin 13 NG/mL 15-77 below low normal Not Available [facility] ([facility]) [address] [place], [address], 03/04/2025 11:23:47 03/03/20 25 03/04/2025 TSH+F REE T4 TSH 0.575 uIU/m L 0.450- 4.500 normal Not Available [facility] ([facility]) [address] [place], [address], 03/04/2025 11:23:48 03/03/20 25 03/04/2025 TSH+F REE T4 T4,free(dire ct) 1.01 NG/dL 0.93-1 .60 normal Not Available [facility] ([facility]) [address] [place], [address], 03/04/2025 11:23:48 03/03/20 25 03/04/2025 CBC WITH DIFFE RENTI AL/PL ATELE T WBC 7.1 x10e3 /uL 3.4-10 .8 normal Not Available [facility] ([facility]) [address] [place], [address], 03/04/2025 11:23:49 03/03/20 25 03/04/2025 CBC WITH DIFFE RENTI AL/PL ATELE T RBC 3.91 x10e6 /uL 3.77-5 .28 normal Not Available [facility] ([facility]) [address] [place], [address], 03/04/2025 11:23:49 03/03/20 25 03/04/2025 CBC WITH DIFFE RENTI AL/PL ATELE T hemoglobin 10.7 g/dL 11.1-1 5.9 below low normal Not Available [facility] ([facility]) [address] [place], [address], 03/04/2025 11:23:49 03/03/20 25 03/04/2025 CBC WITH DIFFE RENTI AL/PL ATELE T hematocrit 33.1 % 34.0-4 6.6 below low normal Not Available [facility] ([facility]) [address] [place], [address], 03/04/2025 11:23:49 03/03/20 25 03/04/2025 CBC WITH DIFFE RENTI AL/PL ATELE T MCV 85 fL 79-97 normal Not Available [facility] ([facility]) [address] [place], [address], 03/04/2025 11:23:49 03/03/20 25 03/04/2025 CBC WITH DIFFE RENTI AL/PL ATELE T MCH 27.4 pg 26.6-3 3.0 normal Not Available [facility] ([facility]) [address] [place], [address], 03/04/2025 11:23:49 03/03/20 25 03/04/2025 CBC WITH DIFFE RENTI AL/PL ATELE T MCHC 32.3 g/dL 31.5-3 5.7 normal Not Available [facility] ([facility]) [address] [place], [address], 03/04/2025 11:23:49 03/03/20 25 03/04/2025 CBC WITH DIFFE RENTI AL/PL ATELE T RDW 14.8 % 11.7-1 5.4 Not Available [facility] ([facility]) [address] [facility] [place], [address], 03/04/2025 11:23:49 03/03/20 25 03/04/2025 CBC WITH DIFFE RENTI AL/PL ATELE T platelets 252 x10e3 /uL 150-45 0 normal Not Available [facility] ([facility]) [address] [facility], [place], [address], 03/04/2025 11:23:49 03/03/20 25 03/04/2025 CBC WITH DIFFE RENTI AL/PL ATELE T neutrophils 68 % not estab. normal Not Available [facility] ([facility]) [address] [facility], [place], [address], 03/04/2025 11:23:49 03/03/20 25 03/04/2025 CBC WITH DIFFE RENTI AL/PL ATELE T lymphs 25 % not estab. normal Not Available [facility] ([facility]) [address] [facility], [place], [address], 03/04/2025 11:23:49 03/03/20 25 03/04/2025 CBC WITH DIFFE RENTI AL/PL ATELE T monocytes 6 % not estab. normal Not Available [facility] ([facility]) [address] [facility], [place], [address], 03/04/2025 11:23:49 03/03/20 25 03/04/2025 CBC WITH DIFFE RENTI AL/PL ATELE T eos 1 % not estab. normal Not Available [facility] ([facility]) [address] [facility], [place], [address], 03/04/2025 11:23:49 03/03/20 25 03/04/2025 CBC WITH DIFFE RENTI AL/PL ATELE T basos 0 % not estab. normal Not Available [facility] ([facility]) [address] [place], [address], 03/04/2025 11:23:49 03/03/20 25 03/04/2025 CBC WITH DIFFE RENTI AL/PL ATELE T immature cells RETAIL RESET MERCHANDISER Not Available [facility] ([facility]) [address] [place], [address], 03/04/2025 11:23:49 03/03/20 25 03/04/2025 CBC WITH DIFFE RENTI AL/PL ATELE T neutrophils (absolute) 4.8 x10e3 /uL 1.4-7. 0 normal Not Available [facility] ([facility]) [address] [place], [address], 03/04/2025 11:23:49 03/03/20 25 03/04/2025 CBC WITH DIFFE RENTI AL/PL ATELE T lymphs (absolute) 1.8 x10e3 /uL 0.7-3. 1 normal Not Available [facility] ([facility]) [address] [place], [address], 03/04/2025 11:23:49 03/03/20 25 03/04/2025 CBC WITH DIFFE RENTI AL/PL ATELE T monocytes(ab solute) 0.5 x10e3 /uL 0.1-0. 9 normal Not Available [facility] ([facility]) [address] [place], [address], 03/04/2025 11:23:49 03/03/20 25 03/04/2025 CBC WITH DIFFE RENTI AL/PL ATELE T eos (absolute) 0.1 x10e3 /uL 0.0-0. 4 normal Not Available [facility] ([facility]) [address] [place], [address], 03/04/2025 11:23:49 03/03/20 25 03/04/2025 CBC WITH DIFFE RENTI AL/PL ATELE T baso (absolute) 0.0 x10e3 /uL 0.0-0. 2 normal Not Available [facility] ([facility]) [address] [facility] [place], [address], 03/04/2025 11:23:49 03/03/20 25 03/04/2025 CBC WITH DIFFE RENTI AL/PL ATELE T immature granulocytes 0 % not estab. Not Available [facility] ([facility]) [address] [facility], [place], [address], 03/04/2025 11:23:49 03/03/20 25 03/04/2025 CBC WITH DIFFE RENTI AL/PL ATELE T immature grans (abs) 0.0 x10e3 /uL 0.0-0. 1 Not Available [facility] ([facility]) [address] [facility], [place], [address], 03/04/2025 11:23:49 03/03/20 25 03/04/2025 CBC WITH DIFFE RENTI AL/PL ATELE T NRBC RETAIL RESET MERCHANDISER Not Available [facility] ([facility]) [address] [facility] [place], [address], 03/04/2025 11:23:49 03/03/20 25 03/04/2025 CBC WITH DIFFE RENTI AL/PL ATELE T hematology comments: RETAIL RESET MERCHANDISER Not Available [facility] ([facility]) [address] [place], [address], 03/04/2025 11:23:49 03/03/20 25 03/04/2025 COMP. METAB OLIC PANEL (14) glucose 84 mg/dL 70-99 normal Not Available [facility] ([facility]) [address] [place], [address], 03/04/2025 11:23:50 03/03/20 25 03/04/2025 COMP. METAB OLIC PANEL (14) BUN 6 mg/dL 6-20 normal Not Available [facility] ([facility]) [address] [place], [address], 03/04/2025 11:23:50 03/03/20 25 03/04/2025 COMP. METAB OLIC PANEL (14) creatinine 0.49 mg/dL 0.57-1 .00 below low normal Not Available [facility] ([facility]) [address] [facility] [place], [address], 03/04/2025 11:23:50 03/03/20 25 03/04/2025 COMP. METAB OLIC PANEL (14) eGFR 139 mL/mi n/1.7 3 >59 normal Not Available [facility] ([facility]) [address] [place], [address], 03/04/2025 11:23:50 03/03/20 25 03/04/2025 COMP. METAB OLIC PANEL (14) BUN/creatini ne ratio 12 9-23 normal Not Available [facility] ([facility]) [address] [place], [address], 03/04/2025 11:23:50 03/03/20 25 03/04/2025 COMP. METAB OLIC PANEL (14) sodium 138 mmol/ L 134-14 4 normal Not Available [facility] ([facility]) [address] [place], [address], 03/04/2025 11:23:50 03/03/20 25 03/04/2025 COMP. METAB OLIC PANEL (14) potassium 4.1 mmol/ L 3.5-5. 2 normal Not Available [facility] ([facility]) [address] [place], [address], 03/04/2025 11:23:50 03/03/20 25 03/04/2025 COMP. METAB OLIC PANEL (14) chloride 106 mmol/ L 96-106 normal Not Available [facility] ([facility]) [address] [facility] [place], [address], 03/04/2025 11:23:50 03/03/20 25 03/04/2025 COMP. METAB OLIC PANEL (14) carbon dioxide, total 18 mmol/ L 20-29 below low normal Not Available [facility] ([facility]) [address] [facility] [place], [address], 03/04/2025 11:23:50 03/03/20 25 03/04/2025 COMP. METAB OLIC PANEL (14) calcium 9.7 mg/dL 8.7-10 .2 normal Not Available [facility] ([facility]) [address] [facility] [place], [address], 03/04/2025 11:23:50 03/03/20 25 03/04/2025 COMP. METAB OLIC PANEL (14) protein, total 6.3 g/dL 6.0-8. 5 normal Not Available [facility] ([facility]) [address] [place], [address], 03/04/2025 11:23:50 03/03/20 25 03/04/2025 COMP. METAB OLIC PANEL (14) albumin 3.9 g/dL 4.0-5. 0 below low normal Not Available [facility] ([facility]) [address] [place], [address], 03/04/2025 11:23:50 03/03/20 25 03/04/2025 COMP. METAB OLIC PANEL (14) globulin, total 2.4 g/dL 1.5-4. 5 Not Available [facility] ([facility]) [address] [place], [address], 03/04/2025 11:23:50 03/03/20 25 03/04/2025 COMP. METAB OLIC PANEL (14) bilirubin, total 0.2 mg/dL 0.0-1. 2 normal Not Available [facility] ([facility]) [address] [facility] [place], [address], 03/04/2025 11:23:50 03/03/20 25 03/04/2025 COMP. METAB OLIC PANEL (14) alkaline phosphatase 62 IU/L 42-106 normal Not Available [facility] ([facility]) [address] [facility] [place], [address], 03/04/2025 11:23:50 03/03/20 25 03/04/2025 COMP. METAB OLIC PANEL (14) AST (SGOT) 15 IU/L 0-40 normal Not Available [facility] ([facility]) [address] [facility] [place], [address], 03/04/2025 11:23:50 03/03/20 25 03/04/2025 COMP. METAB OLIC PANEL (14) ALT (SGPT) 15 IU/L 0-32 normal Not Available [facility] ([facility]) [address] [facility] [place], [address], 03/04/2025 11:23:50 03/03/20 25 03/04/2025 VITAM IN B12 AND FOLAT E vitamin B12 241 pg/mL 232-12 45 normal Not Available [facility] ([facility]) [address] [facility] [place], [address], 03/04/2025 11:23:51 03/03/20 25 03/04/2025 VITAM IN B12 AND FOLAT E folate (folic acid), serum 9.8 NG/mL >3.0 normal A serum folat e eduardo ntrat ion of less than 3.1 ng/mL is consi dered to repre sent clini clark defic iency . Not Available [facility] ([facility]) [address] [facility] [place], [address], 03/04/2025 11:23:51 03/03/20 25 03/04/2025 HEMOG LOBIN A1C hemoglobin A1C 5.5 % 4.8-5. 6 normal Predi abete s: 5.7 - 6.4 Diabe misael: >6.4 Glyce dee contr ol for adult s with diabe misael: <7.0 Not Available [facility] ([facility]) [address] [facility] [place], [address], 03/04/2025 11:23:52 03/03/20 25 03/04/2025 VITAM IN D, 25-HY DROXY vitamin D, 25-hydroxy 24.5 NG/mL 30.0-1 00.0 below low normal Vitam in D defic iency has been defin ed by the [facility] ine and an Endoc rine Socie ty [...] um and D. Denis field [place]: [facility] . 2. Anne hickman MF, Ranulfo wallace [place], Talia off-F maricruz i RAJPUT, et al. Evalu ation , treat ment, and preve ntion of vitam in D defic iency : an Endoc rine Socie ty clini clark pract ice guide line. JCEM. 2010; 96(7) :1911 -30. Not Available [facility] ([facility]) [address] [facility] [place], [address], 03/04/2025 11:23:53 03/03/20 25 03/04/2025 MAGNE SIUM magnesium 2.0 mg/dL 1.6-2. 3 normal Not Available [facility] ([facility]) [address] [facility] [place], [address], 03/04/2025 11:23:54 01/1011/22/2024 MRI, brain , w/o contr ast [facility] [address] [place] [address] Phone: Fax: Name: MEREDITH DAMON Exam Date: : 005 Age 19 years Gender : F Access ion: [id number] Physic ebenezer: IRAJ SERNA Facili ty: [facility] HSV: Outpat ient Exam: MRI BRAIN WO [...] you for referr ing MEREDITH DAMON to [facility]. Legall y authen ticate d by PETTY REYES Newton 11-22 14:46: 49 CC'ed Logic: Orderi ng Provid er: DAPHNE LOZA CC Provid er: DAPHNE LOZA Attend ing Provid er: SERNA IRAJ IA Referr ing Provid er: DAPHNE LOZA Admitt ing Provid er: DAPHNE LOZA [facility] ([facility]) [address] [facility], [place], [address], 11/27/2024 10:37:27 04/28/20 25 2025 [place], obste tric No observ ation record ed. [email or web address] Not Available 2024 16:11:25 Result Notes Documentation Provider Name and Address Organization Details Recorded Time Mri, Brain, W/o Contrast : [address] [address] Name: MEREDITH YEE Exam Date: 11/22/2024 : 2005 Age 19 years Gender: F Physician: MARIANNA SERNA [facility]: [facility] HSV: Outpatient Exam: MRI BRAIN WO History:i??i??Migraine [...] Thank you for referring MEREDITH YEE to [facility]. Legally authenticated by PETTY REYES Newton 2024-11-22 14:46:49 CC'ed Logic: Ordering Provider: DPAHNE THURSTON CC Provider: DAPHNE THURSTON Attending Provider: DAPHNE THURSTON Referring Provider: DAPHNE THURSTON Admitting Provider: DAPHNE martinez, CAYDEN [facility] & [place] 11/27/2024 10:37:27 Problems Name Problem SNOMED Code Status Onset Date Resolution Date Notes Provider Name and Address Organization Details Recorded Time Mixed anxiety and depressive disorder 291804865 Active Yeimi Felix null, [place] - [facility] - y & [place] 2 12:57:11 Irregular periods 04927975 Active Yeimi Felix null, [place] - [facility] - [place] & [place] 2 12:57:11 Mood disorder 46539415 Active Yeimi Felix null, [place] - [facility] - [place] & [place] 2 12:57:11 Attention deficit hyperactivity disorder 380826111 Active Yeimi Felix null, [place] - [facility] - y & [place] 2 12:57:11 Attention deficit hyperactivity disorder, combined type 40427358 Active Yeimi Felix null, [place] - [facility] - & [place] 2 12:57:11 Allergic rhinitis 86577528 Active Yeimi Felix null, [place] - [facility] - & [place] 2 12:57:11 Scoliosis deformity of spine 762345145 Active Yeimi Felix null, [place] - [facility] - & [place] 2 12:57:11 Dyssomnia 07515876 Active Yeimi Felix null, [place] - [facility] - & [place] 2 12:57:11 Depression - motion Active Yeimi Felix null, [place] - [facility] - & [place] 2 12:57:11 Migraine 69116575 Active [address] Serna PA-C [address], [place], [address], [place] - [facility] - y & [place] 5 15:14:39 Frequent headache 922932666 Active 2024 Marianna Serna PA-C [address], [place], [address], [place] - [facility] - y & [place] 5 15:15:53 Gastroesophage al reflux disease without esophagitis 231939533 Active 2024 Marianna Serna PA-C [address] [facility],[address], [place], [address], [facility] & [place] 5 10:58:34 Gestation period, 12 weeks 27566718 Active 2024 Marianna Serna PA-C [address] [facility], [address], [facility] & [place] 5 14:54:25 Near syncope 593564350 Active 2024 Marianna Serna PA-C [address] [facility], [place], [address], [facility] & [place] 5 13:21:31 Notes:Problem Name: Depressi on Problem Code: 783700159 Problem Code Type: SNOMED Status: Active Start_Date: 06/29/2021 - Problem Notes None recorded. Procedures Surgical History Date Name Laterality Status Provider Name and Address Organization Details Recorded Time 11/13/2012 Tonsillect flo/Adenoi dectomy completed Shi Collado [facility] & [place] 11/19/2024 15:05:39 Imaging Results None recorded. Procedure [...] completed Not Available Not Available Not Available [facility] COVID-19 Antigen Rapid Home Test kit USE DIRECTED 11/18 completed Not Available Not Available Not Available Vitals Date Recorded Body height Body mass index (BMI) Body mass index (BMI) [Percentile] Per age and sex Body weight Body temperature Oxygen saturation Oxygen saturation in Arterial blood by Pulse oximetry Heart rate Systolic And Diastolic Provider Name and Address Organization Details Last Updated DateTime 5 162.56 cm 30.9 kg/m2 95 % 99244.6 3 g 98 [degF] 99 % 99 % 94 /min 120/80 mm[Hg] [facility] & [place] 5 15:05:11 Date Recorded Body height Body mass index (BMI) Body mass index (BMI) [Percentile] Per age and sex Body weight Oxygen saturation Oxygen saturation in Arterial blood by Pulse oximetry Heart rate Systolic And Diastolic Provider Name and Address Organization Details Last Updated DateTime 5 162.56 cm 30.9 kg/m2 94 % 76678.6 3 g 98 % 98 % 91 /min 120/70 mm[Hg] [facility] & [place] 5 10:28:12 Date Recorded Body height Body mass index (BMI) [Percentile] Per age and sex Body mass index (BMI) Body weight Body temperature Oxygen saturation Oxygen saturation in Arterial blood by Pulse oximetry Heart rate Systolic And Diastolic Provider Name and Address Organization Details Last Updated DateTime 162.56 cm 94 % 30.9 kg/m2 09338.6 3 g 97.9 [degF] 99 % 99 % 73 /min 120/70 mm[Hg] Shi RODARTE - [facility] & [place] 14:28:01 Social History Question Answer Notes LastModified by Vringo Details LastModified Time Tobacco Smoking Status Current Some Day Smoker Shi martinez, CAYDEN [facility] & [place] 11/19/2024 15:05:36 Do You Have An Advance Directive? No Information not available 11/19/2024 Are You Blind Or Do You Have Difficulty Seeing? No [email or web address] Information not available 11/19/2024 What Was The Date Of Your Most Recent Tobacco Screening? 11/18/2024 [email or web address] Information not available 11/19/2024 Are You Passively Exposed To Smoke? No Information not available 11/19/2024 How Much Tobacco Do You Smoke? 0.25 PPD Information not available 11/19/2024 How Many Years Have You Smoked Tobacco? 3 Information not available 11/19/2024 Sex: Female Functional Status Question Answer Note LastModified by Vringo Details LastModified Time Do you use any illicit or recreational drugs? No [email or web address] Information not available 11/19/2024 What is your level of alcohol consumption? None [email or web address] Information not available 11/19/2024 Do you or have you ever used smokeless tobacco? Never used smokeless tobacco [email or web address] Information not available 11/19/2024 What is your exercise level? Occasional [email or web address] Information not available 11/19/2024 Mental Status Question Answer Note LastModified by Organization D etails LastModified Time Do you feel stressed (tense, restless, nervous, or anxious, or unable to sleep at night)? [id number] Information not available 11/19/2024 Family History Relationship Description Onset Age of this Age Resolved Age Notes LastModified by Organization Details LastModified Time Father Heart disease [email or web address] Not available 2024 15:06:08 Medical History No medical history recorded. Gynecological History Statement/Question Response Menses Monthly Y Sexually Active? Y Obstetrics History GPAL:G 0 P 0 0 0 0 Immunizations Vaccine Type Date Status Note Provider Nam e and Address Organization Details Recorded Time IPV 6 completed Yeimi martinez, CAYDEN Chung LPNT [facility] & [place] 07/24/2022 12:57:12 DTaP, 5 pertussis antigens 6 completed Yeimi Feilx null, CAYDEN Chung LPNT [facility] & [place] 07/24/2022 12:57:12 DTaP, 5 pertussis antigens 5 completed Yeimi Felix null, CAYDEN Chung LPNT [facility] & [place] 07/24/2022 12:57:12 HPV, unspecified formulation 6 completed Yeimi martinez, CAYDEN Chung LPNT [facility] & [place] 07/24/2022 12:57:12 Hep B, adolescent or pediatric 6 completed Yeimi martinez, CAYDEN Chung LPNT [facility] & [place] 07/24/2022 12:57:12 Hib (PRP-T) 6 completed Yeimi martinez, CAYDEN Chung LPNT [facility] & [place] 07/24/2022 12:57:12 Influenza, split virus, quadrivalent, PF 2 completed Yeimi martinez, CAYDEN Chung LPNT [facility] & [place] 07/24/2022 12:57:12 MMR 6 completed Yeimi martinez, CAYDEN Chung LPNT [facility] & [place] 07/24/2022 12:57:12 Hib (PRP-T) 6 completed Yeimi Molinaett null, CAYDEN Chung LPNT [facility] & [place] 07/24/2022 12:57:12 Hep A, ped/adol, 2 dose 6 completed Yeimi Felix null, CAYDEN Chung LPNT [facility] & [place] 07/24/2022 12:57:12 Hep B, adolescent or pediatric 6 completed Yeimi Molinaett null, CAYDEN Chung LPNT [facility] & [place] 07/24/2022 12:57:12 DTaP, 5 pertussis antigens 6 completed Yeimi Isidro null, [place] - [facility] - [place] & [place] 07/24/2022 12:57:12 meningococcal B, OMV 1 completed Yeimi Isidro null, [place] - [facility] - [place] & [place] 07/24/2022 12:57:12 IPV 6 completed Yeimi Isidro null, [place] - [facility] - [place] & [place] 07/24/2022 12:57:12 Hep B, adolescent or pediatric 5 completed Yeimi Isidro null, [place] - [facility] - [place] & [place] 07/24/2022 12:57:12 Hib (PRP-T) 6 completed Yeimi Isidro null, [place] - [facility] - [place] & [place] 07/24/2022 12:57:12 Hib (PRP-T) 5 completed Yeimi Isidro null, [place] - [facility] - [place] & [place] 07/24/2022 12:57:12 IPV 6 completed Yeimi Isidro null, [place] - [facility] - [place] & [place] 07/24/2022 12:57:12 Hep B, adolescent or pediatric 5 completed Yeimi Isidro null, [place] - [facility] - [place] & [place] 07/24/2022 12:57:12 Tdap 6 completed Yeimi Isirdo null, [place] - [facility] - [place] & [place] 07/24/2022 12:57:12 meningococcal B, OMV 1 completed Yeimi Isidro null, [place] - [facility] - [place] & [place] 07/24/2022 12:57:12 varicella 6 completed Yeimi Isidro null, [place] - [facility] - [place] & [place] 07/24/2022 12:57:12 DTaP, 5 pertussis antigens 6 completed Yeimi Isidro null, [place] - [facility] - [place] & [place] 07/24/2022 12:57:12 DTaP, 5 pertussis antigens 6 completed Yeimi Isidro null, [place] - [facility] - [place] & [place] 07/24/2022 12:57:12 pneumococcal conjugate PCV 7 6 completed Yeimi Felix null, [place] - [facility] - [facility] & [place] 07/24/2022 12:57:12 DTaP, 5 pertussis antigens 9 completed Yeimi Felix null, [place] - [facility] - [place] & [place] 07/24/2022 12:57:12 Hep A, unspecified formulation 7 completed Yeimi Felix null, [place] - [facility] - [facility] & [place] 07/24/2022 12:57:12 IPV 5 completed Yeimi Felix null, [place] - [facility] - [place] & [place] 07/24/2022 12:57:12 pneumococcal conjugate PCV 7 5 completed Yeimi Felix null, [place] - [facility] - [facility] & [place] 07/24/2022 12:57:12 Hep B, adolescent or pediatric 6 completed Yeimi Felix null, [place] - [facility] - [place] & [place] 07/24/2022 12:57:12 meningococcal MCV4P 1 completed Yeimi Felix null, [place] - [facility] - [place] & [place] 07/24/2022 12:57:12 pneumococcal conjugate PCV 7 6 completed Yeimi Felix null, [place] - [facility] - [place] & [place] 07/24/2022 12:57:12 varicella 8 completed Yeimi Felix null, [place] - [facility] - [facility] & [place] 07/24/2022 12:57:12 MMR 9 completed Yeimi Felix null, [place] - [facility] - [place] & [place] 07/24/2022 12:57:12 IPV 9 completed Yeimi Felix null, [place] - [facility] - [facility] & [place] 07/24/2022 12:57:12 HPV, unspecified formulation 7 completed Yeimi Felix null, [place] - [facility] - [facility] & [place] 07/24/2022 12:57:12 Hib (PRP-T) 9 completed Yeimi Felix null, [place] - [facility] - [facility] & [place] 07/24/2022 12:57:12 meningococcal MCV4, unspecified formulation 6 completed Yeimi martinez, CAYDEN - [facility] - [place] & [place] 07/24/2022 12:57:12 Past Encounters Encounter ID Performer Location Encounter Start Date Encounter Closed Date Diagnosis/Indication Diagnosis SNOMED-CT Code Diagnosis ICD10 Code Diagnosis IMO Codes Diagnosis Note [id number] Calvin Brown MD [facility] [address] [place] [address] [place] [address] 11/19/2024 14:55:37 11/19/2024 15:34:25 Migraine 47930237 G43.909 Frequent headache 837289 003 R51.9 [id number] Calvin Brown MD [facility] [address] [place] [address] 12/03/2024 10:09:31 12/03/2024 11:28:18 Migraine 89309312 G43.909 Gastroesop hageal reflux disease without esophagitis 547443882 K21.9 [id number] Calvin [facility] MD [facility] [address] [place] [address] 03/03/2025 13:59:36 03/03/2025 15:16:33 Gestation period, 12 weeks 52124692 Z3A.12 9486836 Near syncope 216921765 R 55 691589 Health Concerns Section Related Observation LastModified by Organization Detai ls LastModified Time None Recorded Concern Status LastModified by Organization Details LastModified Time None Recorded Advance Directives Directive N: Payers Insurance Date Sequence Insurance Name Policy Number Policy Grimm Covered Member ID Grimm Member ID Guarantor Name 03/01/2025 1 [facility] Meerdith Marcelina [id number] Meredith Nelly Notes Date Note Type Note Provider Name and Address Organization Details Recorded Time 11/19/2024 text/html Meredith is a 19 yo female who presents to the clinic today for evaluation. Patient is here today for evaluation. Patient was diagnosed with migraine headaches when she was younger she states she has been taking ibuprofen which has been working in the past. Sometimes she does have sensitivity to light. Patient is taking Tylenol and 800 mg of ibuprofen [id number]. Patient states that she does not have any chance of her last menstrual cycle was 2 weeks ago. Patient has no other issues or new complaints. Marianna Serna PA-C [address] [facility], [place], [address], [facility] & [place] 11/19/2024 16:14:49 12/03/2024 text/html Meredith is a 19 yo Female who presents to the clinic today [...] issues or new complaints. Marianna Serna PA-C [address] [place] [address],[address], [place], [address], [facility] & [place] 12/03/2024 13:29:22 03/03/2025 text/html Meredith is a 19 yo Female who presents to the clinic today [...] or new complaints. Marianna Serna PA-C [address], [place], [address], [facility] & [place] 03/04/2025 11:08:44 OBGyn Episode No OBEpisode recorded.
[2025-09-08 15:41] LABS: Bilirubin,Urine Negative (Negative); Color,Urine YELLOW (Yellow); Glucose,Urine (UA) Negative (Negative); Ketones,Urine Negative (Negative); Leukocyte Esterase,Urine 3+ (Negative); PH,Urine 6.5 (5.0-8.5); Protein,Urine Negative (Negative); Specific Gravity, Urine 1.015 (1.005-1.030); Urobilinogen,Urine 0.2 EU/dl (0.2)
[2025-09-08 15:54] VITALS: BP 127/77; PULSE 107; RESP 18; TEMP 36.7; O2SAT 98; BMI 35.2
[2025-09-08 16:10] LABS: Bacteria,Urine 3+ /lpf; WBC,Urine 20-50 #/hpf (0-3)
[2025-09-08 22:34] LABS: Alanine Aminotransferase 14 U/L (12-78); Albumin Level 2.8 g/dl (3.5-5.0); Albumin/Globulin Ratio 0.8 (1.1-1.8); Alkaline Phosphatase 157 U/L (38-126); Anion Gap 8.7 mEq/L (5-15); Aspartate Amino Transferase 23 U/L (14-36); Bilirubin,Total 0.5 mg/dl (0.2-1.3); Blood Urea Nitrogen 4 mg/dl (7-17); Calcium 9.0 mg/dl (8.4-10.2); Carbon Dioxide 21 mmol/L (22.0-30.0); Chloride 104 mmol/L (98-107); Creatinine Clearance Estimated 263 mL/min (50-200); Creatinine,Serum 0.50 mg/dl (0.52-1.04); Estimated Glomerular Filt Rate 157 ml/min (>60); GFR (African American) 190 ML/MIN (>60); Globulin 3.5 g/dL (1.3-3.2); Glucose 106 mg/dl (74-100); Potassium 3.7 mmoL/L (3.5-5.1); Sodium 130 mmol/L (136-145); Total Protein,Serum 6.3 g/dl (6.3-8.2)
[2025-09-08] MEDS: BUTORPHANOL TARTRATE 1 MG/ML VIAL IV (22:42)
[2025-09-09] MEDS: DEXTROSE 5%-LACTATED RINGERS 1,000 ML 125 ML IV (04:00)
[2025-09-09] MEDS: BUTORPHANOL TARTRATE 1 MG/ML VIAL IV (04:18)
[2025-09-09] MEDS: LACTATED RINGERS 1000ML 1,000 ML 250 ML IV (05:49)
--- NOTE | 2025-09-09 07:46 | EXP.ANES.CKL ---
[facility] Disclaimer: The information contained in this section may have been updated after the patient was seen, as this information can be updated by other users. Medical History Hematuria with proteinuria GBS (group B Streptococcus carrier), +RV culture, currently Gestational hypertension Rh negative status during Stable. PPD#2 s/p -midline episiotomy. -Doing well. VSS. Serial lochia and fundal checks. -Continue with perineal ice packs for discomfort -A-/antibody positive: all common alloantibodies ruled out. Rhogam indicated -Bottle feeding, female -Contraception: undecided -Follow-up 2 weeks for routine visit -Dispo: home in 1-3 days pending mother/ status #Preeclampsia - LFT and Renal function wnl - BP well controlled - Continue Labetalol 200mg BID. This was her previous dose of labetalol and she will be discharged home with this dose - Continue to follow closely #Anemia - Hemoglobin: 9.3--> 8.8 - asymptomatic anemia noted. Vitals stable. Continue monitoring. DC with Fe daily or every other day - MCV: 88. Normocytic, likely physiologic anemia of . - Plt: 344 - Continue to monitor Teen Surgical History No history of previous surgery Family History Grandfather Cancer Social History (Updated 09/08/25 @ 16:08 by Mushtaq Colvin RN) Smoking Status: Light tobacco smoker alcohol intake: never substance use type: denies use current occupational status: unemployed Travel in the last 8 weeks?: None number of children: 0 Have you lived/traveled outside US in past 30 days?: No Contact w/someone who lives/traveled outside US past 30 days?: No Exposure to someone with infectious disease in past 14 days?: No Do you have a fever (greater than 100.4 F or 38 C)?: No Have you tested positive for COVID-19?: No Exposed to someone with COVID-19 in past 14 days?: No Do you have a sore throat?: No Do you have a cough?: No Do you have any weakness?: No Are you experiencing any nausea/vomitting?: No Do you have any diarrhea?: No Are you experiencing any unusual bleeding?: No Do you have any muscle aches/pain?: No Do you have any abdominal pain?: No Are you experiencing loss of taste or smell?: No [facility] Anesthesia Checklist Patient Identification Patient Identification: Arm Band and Family Structural Data Admitted From: Inpatient Planned Operative Procedure/s: Labor epidural Consent for Planned Operative Procedure(s) Verified: Yes Verified Documents: Surgical Consent and History and Physical NPO Status Verified Time NPO: 00:00 Additional verifications Patient : Yes Anesthesia Reactions: No Hx Blood Transfusions: No Blood Transfusion Reaction: No Cephalosporin Allergy: No Airway Assessment Mallampati Score:: Class II C-Spine Mobility Assessed: Yes TMJ Mobility Assessed: Yes Dentition: Good Dentition Neurological Assessment Level of Consciousness: Awake, Alert, Appropriate and Follows Commands Hx Seizures: No Numbness or tingling in extremities: No Anesthesia Plan Anesthesia Risk discussed: Yes ASA Class: I Anesthesia Type: Epidural Preoperative Comments Pre-Operative Comments: 39 weeks in labor.
[2025-09-09 08:06] VITALS: BP 125/76; PULSE 77; RESP 18; TEMP 36.8; O2SAT 98
--- NOTE | 2025-09-09 08:22 | EXP.HP ---
History of Present Illness *Admission Date: 09/08/25 *Reason for visit:: Induction *History of present illness: Meredith Villegas is a pleasant 20yo at 39 weeks and 2 days gestation who presented to labor and delivery for schduled IOL. Her has been uncomplicated. On presentation patient endorsed good movement and denies any leakage of fluid or vaginal bleeding. A-, antibody negative, rubella immune, hepatitis B negative, hepatitis C negative, RPR negative, HIV negative 1 hour GTT: 145 3 hr GTT: 93/143/123/127 GBS negative PFSH PFS Disclaimer: The information contained in this section may have been updated after the patient was seen, as this information can be updated by other users. Medical History Hematuria with proteinuria GBS (group B Streptococcus carrier), +RV culture, currently Gestational hypertension Rh negative status during Stable. PPD#2 s/p -midline episiotomy. -Doing well. VSS. Serial lochia and fundal checks. -Continue with perineal ice packs for discomfort -A-/antibody positive: all common alloantibodies ruled out. Rhogam indicated -Bottle feeding, female infant -Contraception: undecided -Follow-up 2 weeks for routine visit -Dispo: home in 1-3 days pending mother/ status #Preeclampsia - LFT and Renal function wnl - BP well controlled - Continue Labetalol 200mg BID. This was her previous dose of labetalol and she will be discharged home with this dose - Continue to follow closely #Anemia - Hemoglobin: 9.3--> 8.8 - asymptomatic anemia noted. Vitals stable. Continue monitoring. DC with Fe daily or every other day - MCV: 88. Normocytic, likely physiologic anemia of . - Plt: 344 - Continue to monitor Teen Surgical History No history of previous surgery Family History Grandfather Cancer Social History (Updated 09/08/25 @ 16:08 by Mushtaq Colvin RN) Smoking Status: Light tobacco smoker alcohol intake: never substance use type: denies use current occupational status: unemployed Travel in the last 8 weeks?: None number of children: 0 Have you lived/traveled outside US in past 30 days?: No Contact w/someone who lives/traveled outside US past 30 days?: No Exposure to someone with infectious disease in past 14 days?: No Do you have a fever (greater than 100.4 F or 38 C)?: No Have you tested positive for COVID-19?: No Exposed to someone with COVID-19 in past 14 days?: No Do you have a sore throat?: No Do you have a cough?: No Do you have any weakness?: No Are you experiencing any nausea/vomitting?: No Do you have any diarrhea?: No Are you experiencing any unusual bleeding?: No Do you have any muscle aches/pain?: No Do you have any abdominal pain?: No Are you experiencing loss of taste or smell?: No Other Medical History Have you received the Flu Vaccine for this season: No Have you received the Pneumonia Vaccine: No Review of Systems Review of Systems Review of systems (narrative): Review of Systems Constitutional: Denies fever, chills, and sweats Eyes: Denies vision change/ pain Respiratory: Denies cough and shortness of breath Cardiovascular: Denies chest pain and lightheadedness Gastrointestinal: Denies abdominal pain. Denies nausea, vomiting. Genitourinary: Denies dysuria and incontinence Musculoskeletal: Denies shoulder pain and back pain Neurological: Denies change in speech or headaches Meds Home Medications and Allergies Home Medications ?Medication ?Instructions ?Recorded ?Confirmed ?Type famotidine 20 mg tablet 20 mg PO BID 02/07/25 09/08/25 History vit no.95-ferrous 1 tab PO DAILY 03/07/25 09/08/25 History fumarate 28 mg-folic acid 800 mcg tablet () escitalopram oxalate 10 mg tablet 10 mg PO DAILY 07/24/25 09/08/25 History aspirin 81 mg tablet,delayed 81 mg PO DAILY 09/08/25 09/08/25 History release promethazine 12.5 mg tablet 12.5 mg PO TIDP PRN nausea and 09/08/25 09/08/25 History vomiting New Prescriptions to Start Prescriptions: Allergies Allergy/AdvReac Type Severity Reaction Status Date / Time No Known Allergies Allergy Verified 09/03/25 09:25 Exam Data for Last 24 hours Vital signs and Labs for Last 24 Hours: Temp Pulse Resp BP Pulse Ox O2 Del Method 98.1 F 107 H 18 127/77 98 Room Air 09/08/25 15:54 09/08/25 15:54 09/08/25 15:54 09/08/25 15:54 09/08/25 15:54 09/08/25 15:54 Laboratory Results - last 24 hr 09/08/25 15:11: WBC 10.6, RBC 3.28 L, Hgb 9.4 L, Hct 29.0 L, MCV 88.4, MCH 28.7, MCHC 32.4, RDW 14.7, Plt Count 320, MPV 9.8, Neut % (Auto) 72.2, Lymph % (Auto) 20.2, Gilchrist % (Auto) 5.9, Eos % (Auto) 0.9, Baso % (Auto) 0.2, Neut # (Auto) 7.6, Lymph # (Auto) 2.1, Gilchrist # (Auto) 0.6, Eos # (Auto) 0.1, Baso # (Auto) 0.0, Sodium 130 L, Potassium 3.7, Chloride 104, Carbon Dioxide 21 L, Anion Gap 8.7, BUN 4 L, Creatinine 0.50 L, Estimated Creat Clear 263, Estimated GFR 157, Est GFR ( Amer) 190, Glucose 106 H, Calcium 9.0, Total Bilirubin 0.5, AST 23, ALT 14, Alkaline Phosphatase 157 H, Total Protein 6.3, Albumin 2.8 L, Globulin 3.5 H, Albumin/Globulin Ratio 0.8 L, Blood Type A Negative, Antibody Screen Negative, Crossmatch (AHG) See Detail 09/08/25 : Urine Color Yellow, Urine Appearance Clear, Urine pH 6.5, Ur Specific [place] 1.015, Urine Protein Negative, Urine Glucose (UA) Negative, Urine Ketones Negative, Urine Blood Negative, Urine Nitrate Negative, Urine Bilirubin Negative, Urine Urobilinogen 0.2, Ur Leukocyte Esterase 3+ A, Urine RBC None, Urine WBC 20-50, Ur Squamous Epith Cells 5-10, Urine Bacteria 3+ I & O for Last 24 hours: Intake & Output 09/06/25 09/07/25 09/08/25 09/09/25 23:59 23:59 23:59 23:59 Weight 205 lb Narrative: General: patient is alert oriented in no acute distress and responds appropriately to questions. HEENT: NCAT, EOMI, moist mucous membranes, neck supple with full ROM Cardiovascular: RRR +S1/S2, no murmurs or rubs Pulmonary: Clear to auscultation bilaterally, nonlabored breathing, symmetric chest rise Abdominal: Gravid abdomen appropriate for gestation. No guarding, rebound, or tenderness noted. Extremities: trace edema, no tenderness or cyanosis noted Skin: Normal turgor, intact, warm. Negative for erythema, pallor, petechia, or lesions Neurologic: Negative for sensory or motor deficit Psychiatric: Normal affect, normal thought process, good judgment and insight, no depression or anxious mood appreciated. *Routine HEENT Exam Head: Present normocephalic and atraumatic Eye: Present EOMI, PERRL and normal accommodation; Absent conjunctival icterus, scleral injection, nystagmus or exophthalmos ENT: Present mucous membranes moist *Routine Respiratory Exam Respiratory: Present CTA bilaterally, normal respiratory effort, able to speak in complete sentences and symmetric chest movement; Absent accessory muscle use, decreased breath sounds, rales, respiratory distress, wheezes, distant breath sounds or diminished air movement *Routine Cardiovascular Exam Cardiovascular: Present RRR, Normal S1 and Normal S2; Absent murmur or gallop *Routine Abdominal Exam Abdominal: Present soft and normoactive bowel sounds; Absent tenderness, distended, rebound or guarding *Routine Rectal Exam Rectal:: deferred *Routine Genitalia Exam Genitalia:: normal female Assessment and Plan *Assessment and plan (1) Teen : Status: Acute Category: Medical (2) Rh negative status during : Problem Comment: Stable. PPD#2 s/p -midline episiotomy. -Doing well. VSS. Serial lochia and fundal checks. -Continue with perineal ice packs for discomfort -A-/antibody positive: all common alloantibodies ruled out. Rhogam indicated -Bottle feeding, female -Contraception: undecided -Follow-up 2 weeks for routine visit -Dispo: home in 1-3 days pending mother/infant status #Preeclampsia - LFT and Renal function wnl - BP well controlled - Continue Labetalol 200mg BID. This was her previous dose of labetalol and she will be discharged home with this dose - Continue to follow closely #Anemia - Hemoglobin: 9.3--> 8.8 - asymptomatic anemia noted. Vitals stable. Continue monitoring. DC with Fe daily or every other day - MCV: 88. Normocytic, likely physiologic anemia of . - Plt: 344 - Continue to monitor Status: Acute Category: Medical Code(s): O26.899 - Other specified related conditions, unspecified trimester; Z67.91 - Unspecified blood type, Rh negative (3) depression associated with first : Status: Acute Category: Medical Code(s): F53.0 - depression (4) Encounter for induction of labor: Status: Acute Category: Medical Code(s): Z34.90 - Encounter for supervision of normal , unspecified, unspecified trimester Plan - Monitor vitals - Admit to L&D for induction of labor - Plan for induction with 25mcg of vaginal cytotec [id number] per protocol - Plan for augmentation of labor with AROM and pitocin if required. - External FHR and TOCO monitor - Exam this mornin/90/-2. ruptured, clear fluid - GBS neg/ Blood type: A- - Hemoglobin: 9.4, Plt: 320 - Plan for epidural anesthesia - Anticipate vaginal delivery of low risk male: Shashi Valdez
[2025-09-09] MEDS: OXYTOCIN/RINGERS LACTATE 30 UNITS/500 ML BAG IV (08:39)
[2025-09-09] MEDS: OXYTOCIN/RINGERS LACTATE 30 UNITS/500 ML BAG 999 UNITS IV (10:17)
--- NOTE | 2025-09-09 10:45 | EXP.DN ---
Delivery Note Delivery Date:: 09/09/25 Delivery Time:: 10:15 Anesthesia Type: Epidural Was labor medically induced?: Yes Induction method: per misoprostol protocol Gestational age (weeks): 39 Infant delivered prior to 39 weeks?: No Gender: Male at 1 minute: 8 at 5 minutes: 9 Delivery Procedure:: Preoperative diagnosis: 1. at 39 completed this weeks gestation, vertex 2. Rh negative 3. GBS negative Postoperative diagnosis: same EBL: 100mL Specimen: 1. Cord blood Findings: 1. Liveborn viable male : Shashi Valdez. Apgars 8/9 at 1 and 5 minutes respectively. Weight pending at time of dictation 2. 1st degree midline perineal laceration Complications: None Procedure: Nonoperative spontaneous vaginal delivery Meredith Villegas is a 22-year-old who presented to labor and delivery last night for induction of labor with misoprostol. was uncomplicated. Patient was brought to labor and delivery for Cytotec cervical ripening. She received 2 doses of Cytotec and tolerated that well. Patient had rupture of membranes this morning revealing clear fluid. She received an epidural for anesthesia. She progressed to complete. The was noted to be in WOODROW position. With effective maternal pushing there was a nonoperative spontaneous vaginal delivery at 1015. There was no nuchal cord. The anterior shoulder delivered, followed by the posterior shoulder without dystocia. The body and lower extremities delivered without difficulty. The was bulb suctioned and was crying immediately following delivery. The was placed on the maternal abdomen, however delayed cord clamping was unable to be appreciated given immediate delivery of the placenta. The umbilical cord was doubly clamped and cut. Cord blood was collected and sent for routine testing. The placenta delivered with cord traction and suprapubic contertraction. Pitocin was started. The uterus was firm and bleeding was minimal. The perineum, vaginal jimenez, cervix, and paraurethral area were inspected thoroughly. There was a first-degree midline perineal laceration. There were bilateral labial abrasions that were hemostatic. The laceration was repaired in the usual fashion using 2-0 Vicryl suture. The laceration was hemostatic. The cervix and vaginal jimenez were inspected and noted to be hemostatic. This concluded the delivery. The patient was counseled regarding the events of the delivery and repair. The patient tolerated the delivery well. All counts were correct by nursing. Mother and were doing well and bonding upon my leaving the delivery room. Laceration:: vaginal Placental Delivery Description: Spontaneous
[2025-09-09 16:20] LABS: RPR W/RFX Titers Nonreactive (Nonreactive)
[2025-09-09 20:57] VITALS: BP 126/75; PULSE 90; RESP 17; TEMP 36.8; O2SAT 97
[2025-09-09] MEDS: IBUPROFEN 400 MG TABLET 800 MG PO (21:11)
[2025-09-09] MEDS: FAMOTIDINE 20MG TABLET 20 MG PO (21:12)
[2025-09-09] MEDS: ACETAMINOPHEN 500MG TAB 1000 MG PO (23:21)
[2025-09-10 03:49] VITALS: BP 119/76; PULSE 68; RESP 16; TEMP 36.7; O2SAT 98
[2025-09-10] MEDS: ACETAMINOPHEN 500MG TAB 1000 MG PO (05:25)
[2025-09-10] MEDS: BENZOCAINE-MENTHOL SPRAY 56GM CAN TP (05:26)
[2025-09-10] MEDS: WITCH HAZEL 40 PADS/BOX 1 EACH TP (05:26)
[2025-09-10] MEDS: SENNA 8.6MG TABLET 8.6 MG PO (05:26)
[2025-09-10 06:22] LABS: Hematocrit 31.5 % (37.0-47.0); Hemoglobin 10.2 g/dL (12.2-16.2); Immature Granulocytes % 0.4 %; Mean Corpuscular HGB Conc 32.4 g/dL (31.8-35.4); Mean Corpuscular Hemoglobin 29.2 pg (27.0-31.2); Mean Corpuscular Volume 90.3 fl (81-99); Nucleated Red Blood Cells % 0 %; Platelet Count 287 K/mm3 (142-424); Red Blood Count 3.49 M/mm3 (4.20-5.40); Red Cell Distribution Width-SD 48.4 fL; White Blood Count 11.7 K/mm3 (4.5-13.0)
[2025-09-10 08:24] VITALS: BP 124/74; PULSE 74; RESP 18; TEMP 36.7; O2SAT 99
[2025-09-10] MEDS: IBUPROFEN 400 MG TABLET 800 MG PO (09:17)
[2025-09-10] MEDS: FAMOTIDINE 20MG TABLET 20 MG PO (09:17)
[2025-09-10] MEDS: ESCITALOPRAM 10MG TABLET 10 MG PO (09:17)
[2025-09-10] MEDS: RHO(D) IMMUNE GLOBULIN 1,500 UNIT (300MCG) SYRINGE 300 MCG IM (10:18)
--- NOTE | 2025-09-10 12:51 | EXP.DC.SUM ---
General Admission date:: 09/08/25 Discharge date: 09/10/25 HPI HPI HPI: Meredith Villegas is a pleasant 20yo at 39 weeks and 2 days gestation who presented to labor and delivery for schduled IOL. Her has been uncomplicated. On presentation patient endorsed good movement and denies any leakage of fluid or vaginal bleeding. A-, antibody negative, rubella immune, hepatitis B negative, hepatitis C negative, RPR negative, HIV negative 1 hour GTT: 145 3 hr GTT: 93/143/123/127 GBS negative Hospital Course Hospital Course Hospital Course: Meredith Villegas is a very pleasant 20-year-old day #1 from lying a normal spontaneous vaginal delivery. She had an elective induction of labor at term. She was brought in and received Cytotec for cervical ripening followed by ruptured membranes with a cervical exam that morning. She delivered a live viable male on 09/09/2025 at 10:15 AM. weighed 7 pounds 13 ounces at delivery, Apgars were 8 and 9 at 1 and 5 minutes respectively. She has done well and has remained afebrile with her at her hospitalization. She is eating and drinking and ambulating. She is bottlefeeding. Her lochia is normal. She has A Rh- blood, she is rubella immune and was group B streptococcus negative. She will be discharged home to follow-up with Dr. Wallace in 2 weeks time. She will continue with her vitamins and iron. She will take ibuprofen as well. She was given the usual instructions with respect to limiting her activity, driving and sexual activity. She was given instructions with respect to wound care. Her condition on discharge is stable and improved. Exam Data for Last 24 hours Vital signs and Labs for Last 24 Hours: Temp Pulse Resp BP Pulse Ox O2 Del Method 98.0 F 74 18 124/74 99 Room Air 09/10/25 08:24 09/10/25 08:24 09/10/25 08:24 09/10/25 08:24 09/10/25 08:24 09/10/25 08:24 Laboratory Results - last 24 hr 09/08/25 15:11: RPR w/Rflx to Titer Nonreactive 09/10/25 05:27: WBC 11.7, RBC 3.49 L, Hgb 10.2 L, Hct 31.5 L, MCV 90.3, MCH 29.2, MCHC 32.4, RDW 14.7, Plt Count 287, MPV 10.4, Neut % (Auto) 69.1, Lymph % (Auto) 22.2, Archer % (Auto) 7.0, Eos % (Auto) 1.0, Baso % (Auto) 0.3, Neut # (Auto) 8.1 H, Lymph # (Auto) 2.6, Archer # (Auto) 0.8, Eos # (Auto) 0.1, Baso # (Auto) 0.0, Screen Negative, Baby's Rh Status Positive I & O for Last 24 hours: Intake & Output 09/07/25 09/08/25 09/09/25 09/10/25 23:59 23:59 23:59 23:59 Intake Total 2503.35 / 2503.35 Balance 2503.35 / 2503.35 Weight 205 lb Microbiology Reports for the Last 24 Hours: Microbiology 09/08/25 Unknown Urine,Clean Catch Urine Culture - Final Multiple organisms, suggests contamination. Narrative: General: patient is alert oriented in no acute distress and responds appropriately to questions. Appears to be in minimal pain. Sitting up in bed and doing well HEENT: NCAT, EOMI, moist mucous membranes, neck supple with full ROM Cardiovascular: RRR +S1/S2, no murmurs or rubs Pulmonary: Clear to auscultation bilaterally, nonlabored breathing, symmetric chest rise Abdominal: Fundus below the umbilicus, firm, and tenderness appropriate for the period. Extremities: trace edema, no tenderness or cyanosis noted Skin: Normal turgor, intact, warm. Negative for erythema, pallor, petechia, or lesions Neurologic: Negative for sensory or motor deficit Psychiatric: Normal affect, normal thought process, good judgment and insight, no depression or anxious mood appreciated. Results Data Completed and Pending Labs on day of discharge: Labs from last 24 hours 09/10/25 09/08/25 05:27 15:11 WBC 11.7 RBC 3.49 L Hgb 10.2 L Hct 31.5 L MCV 90.3 MCH 29.2 MCHC 32.4 RDW 14.7 Plt Count 287 MPV 10.4 Neut % (Auto) 69.1 Lymph % (Auto) 22.2 Archer % (Auto) 7.0 Eos % (Auto) 1.0 Baso % (Auto) 0.3 Neut # (Auto) 8.1 H Lymph # (Auto) 2.6 Archer # (Auto) 0.8 Eos # (Auto) 0.1 Baso # (Auto) 0.0 RPR w/Rflx to Titer Nonreactive Screen Negative Baby's Rh Status Positive DS: Diagnosis Discharge Diagnosis (1) Teen : Status: Acute (2) Rh negative status during : Status: Acute Code(s): O26.899 - Other specified related conditions, unspecified trimester; Z67.91 - Unspecified blood type, Rh negative Problem details: Stable. PPD#2 s/p -midline episiotomy. -Doing well. VSS. Serial lochia and fundal checks. -Continue with perineal ice packs for discomfort -A-/antibody positive: all common alloantibodies ruled out. Rhogam indicated -Bottle feeding, female infant -Contraception: undecided -Follow-up 2 weeks for routine visit -Dispo: home in 1-3 days pending mother/infant status #Preeclampsia - LFT and Renal function wnl - BP well controlled - Continue Labetalol 200mg BID. This was her previous dose of labetalol and she will be discharged home with this dose - Continue to follow closely #Anemia - Hemoglobin: 9.3--> 8.8 - asymptomatic anemia noted. Vitals stable. Continue monitoring. DC with Fe daily or every other day - MCV: 88. Normocytic, likely physiologic anemia of . - Plt: 344 - Continue to monitor (3) depression associated with first : Status: Acute Code(s): F53.0 - depression (4) Encounter for induction of labor: Status: Acute Code(s): Z34.90 - Encounter for supervision of normal , unspecified, unspecified trimester Meds Home Medications and Allergies Home Medications ?Medication ?Instructions ?Recorded ?Confirmed ?Type famotidine 20 mg tablet 20 mg PO BID 02/07/25 09/08/25 History vit no.95-ferrous 1 tab PO DAILY 03/07/25 09/08/25 History fumarate 28 mg-folic acid 800 mcg tablet () escitalopram oxalate 10 mg tablet 10 mg PO DAILY 07/24/25 09/08/25 History promethazine 12.5 mg tablet 12.5 mg PO TIDP PRN nausea and 09/08/25 09/08/25 History vomiting acetaminophen 500 mg tablet 500 mg PO Q6H PRN fever or pain 09/10/25 Rx #30 tabs ferrous sulfate 325 mg (65 mg 325 mg PO DAILY #30 tabs 09/10/25 Rx iron) tablet,delayed release ibuprofen 800 mg tablet 800 mg PO Q8H PRN pain #60 tabs 09/10/25 Rx sennosides 8.6 mg tablet (Senna 8.6 mg PO BIDP PRN Constipation 09/10/25 Rx Lax) #60 tabs New Prescriptions to Start Prescriptions: acetaminophen Mary Kay Wallace ferrous sulfate Mary Kay Wallace ibuprofen Rodrigo,Mary Kay sennosides [Senna Lax] Mary Kay Wallace Allergies Allergy/AdvReac Type Severity Reaction Status Date / Time No Known Allergies Allergy Verified 09/03/25 09:25 Discharge Plan Disposition Patient Disposition: Home, Self-Care Discharge Order Discharge Orders: Discharge Order (Routine); Ordered 09/10/25 Ordered By: Mary Kay Wallace Follow up Plan Follow up with: Mary Kay Wallace DO [Staff Physician, [employer]CRE[employer] PR[employer]ING [employer]PECTOR] - Enter time for follow up Prescriptions/Medication Reconciliation: New sennosides [Senna Lax] 8.6 mg Tablet 8.6 mg PO BIDP PRN (Reason: Constipation) Qty: 60 2RF ibuprofen 800 mg tablet 800 mg PO Q8H PRN (Reason: pain) Qty: 60 2RF acetaminophen 500 mg tablet 500 mg PO Q6H PRN (Reason: fever or pain) Qty: 30 3RF ferrous sulfate 325 mg (65 mg iron) tablet,delayed release (DR/EC) 325 mg PO DAILY Qty: 30 3RF Continued famotidine 20 mg tablet 20 mg PO BID PNV no.95-ferrous fumarate-FA [] 28 mg iron- 800 mcg tablet 1 tab PO DAILY escitalopram oxalate 10 mg tablet 10 mg PO DAILY promethazine 12.5 mg tablet 12.5 mg PO TIDP PRN (Reason: nausea and vomiting) Discontinued aspirin 81 mg tablet,delayed release (DR/EC) 81 mg PO DAILY Problem Reconciliation Problems Reviewed?: Yes Patient Discharge Instructions ACTIVITY: Continue current activity DIET: regular diet Additional Instructions: Congratulations on the delivery of your sweet baby boy. It is my privilege to be your doctor and I am so thankful I could be a part of your special day. Discharge: -Take 800 mg Ibuprofen every 8 hours as needed for pain. You can also take 500-1000 mg of Tylenol in between doses, every 6-8 hours. -Colace can be taken 1-2 times per day as you need to soften your stool. Make sure to drink at least 8 cups of water per day. -Iron supplements can make you constipated. You can take iron tablets every other day if constipation is too bad. -Nothing in the vagina for 6 weeks - no intercourse, douching, tampons. No tub baths or swimming pools. -Do not lift greater than 20pounds for 2 weeks, this is the equivalent of 2 gallons of milk. -Reasons to return to L&D or call On-Call doctor - fever (greater than 100.4) - heavy vaginal bleeding (soaking through 1 pad in less than 2 hours or passing clots that are egg sized) - vaginal discharge (malodorous and/or purulent) - severe headaches, leg tenderness/edema, or any other symptoms that warrant immediate medical attention. depression/blues - Normal to feel anxious/overwhelmed for first 2 weeks - Talk to your doctor if: anxiety lasts over 2 weeks, trouble bonding with baby, withdrawing from other family members, thoughts of harming yourself or others Blood pressure and preeclampsia instructions 1. Please take your blood pressure 1-2 times daily. 2. Please call if greater than 2 values are higher than: 150 systolic (the top number) or 100 diastolic (the bottom number). 3. Please go to the emergency room or labor and delivery triage if any value is higher than: 160 systolic (the top number) or 110 diastolic (the bottom number). 4. Please call if unrelenting headache (does not go away with rest or Tylenol or ibuprofen), changes in vision (spots, floaters, flashes of light), chest pain, shortness of breath, or right upper quadrant (liver) abdominal pain. Mary Kay Wallace DO [facility] [phone] *Nothing in the Vagina for 6 weeks* *No strenuous activity* *No heavy lifting* *No tub baths until okay's by MD* Patient Instructions: Depression, Hemorrhage, DI for Labor and Delivery, Vaginal , DI for Pre-eclampsia, [facility] Post Discharge Instructions Print Language: Japanese Providers Primary Care Provider: Mely Lafleur Admit Provider: Mauro Louis Attending Provider: Mauro Louis
== END 2025-09-10 16:50 | disposition home or self-care (01) | DRG 807 ==
PROVIDERS: Obstetrics & Gynecology; Admitting Provider Nurse Practitioner Obstetrics & Gynecology; PCP Nurse Practitioner Family; Visit Provider Nurse Practitioner Obstetrics & Gynecology
DX: O26.893 Other specified pregnancy related conditions, third trimester (principal); Z37.0 Single live birth; O14.94 Unspecified pre-eclampsia, complicating childbirth; Z3A.39 39 weeks gestation of pregnancy; O99.02 Anemia complicating childbirth; O99.345 Other mental disorders complicating the puerperium; F53.0 Postpartum depression; O99.334 Smoking (tobacco) complicating childbirth; F17.200 Nicotine dependence, unspecified, uncomplicated; O70.0 First degree perineal laceration during delivery; O71.82 Other specified trauma to perineum and vulva; Z67.11 Type A blood, Rh negative; Z79.82 Long term (current) use of aspirin; Z79.899 Other long term (current) drug therapy; Z23 Encounter for immunization
CPT/HCPCS: 36415; 51702; 59025; 80053; 81001; 82800; 85025; 85461; 86592; 86850; 87086; 94761; J0595; J2790; J7120; J7121